=== PATIENT | male | born 1950 | race Caucasian/White ===

== ENCOUNTER 2018-06-27 11:38 | Inpatient (IN) | END 2018-06-28 12:40 | disposition left against medical advice (07) | DRG 378 ==

== ENCOUNTER 2018-08-28 18:21 | Inpatient (IN) | payer MEDICARE ==
[~2018-08-28] VITALS: Ht 170.2 cm; Wt 55.1 kg
[~2018-08-28 18:21] MED LIST: ATOR40TA68 PO; CLOP75TA27 PO; FLUO40CA PO; LEVE10006 PO; TRAZ-111 PO
[2018-08-28] MEDS ORDERED: CEFEPIME 2GM/50 ML (PMX) 50 ML IVPB STA (18:22)
[2018-08-28] MEDS ORDERED: SOD CHLORIDE 0.9% 2,250 ML IV ONE (18:30)
[2018-08-28] MEDS ORDERED: VANCOMYCIN 1 GM (PMX) 250 ML IVPB ONE (18:30)
[2018-08-28] MEDS ORDERED: SOD CHLORIDE 0.9% 0 ML IV ONE (18:59)
--- NOTE | 2018-08-28 19:05 | ERD ---
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 EMS initially reported possible last known well time 1 hour prior to arrival but it appears based on conversation with alf facility at this is likely much longer. It appears the patient was with a borderline blood pressure and he was given 250 cc of saline and started to perk up and was a little bit more conversive. The patient has an chronic encephalopathy and cannot provide further history. Remainder of HPI is very limited. Patient arrives with very limited documentation. No advanced directives with the patient. ROS altered Medications Home Meds Reported Medications Guaifenesin/Codeine Phos (Guaifenesin-Codeine Syrup) 118 Ml Syrup, 5 ML PO Q6H PRN for NEEDED 08/28/18 Oxycodone Hcl* (IR) (Oxycodone Hcl*) 15 Mg Tablet, 15 MG PO Q6H PRN for PAIN, TAB 08/28/18 Docusate Sodium* (Colace*) 100 Mg Capsule, 100 MG PO QHS, #30 CAP 08/28/18 Carvedilol* (Carvedilol*) 3.125 Mg Tablet, 3.125 MG PO BID, #60 TAB 08/28/18 Clonazepam* (Clonazepam*) 1 Mg Tablet, 1 MG PO NEEDED PRN for ANXIETY, TAB 08/28/18 Gabapentin* (Gabapentin*) 400 Mg Capsule, 400 MG PO Q8H, #90 CAP 08/28/18 Ivabradine HCl (Corlanor) 5 Mg Tablet, 2.5 MG PO BID, #60 TAB 08/28/18 Clopidogrel Bisulfate* (Clopidogrel Bisulfate*) 75 Mg Tablet, 75 MG PO DAILY, #30 TAB 08/28/18 Atorvastatin Calcium* (Atorvastatin Calcium*) 20 Mg Tablet, 20 MG PO QHS, #30 TAB 08/28/18 Aspirin* (Aspirin* EC) 81 Mg Tablet.dr, 81 MG PO DAILY, TAB 08/28/18 Quetiapine Fumarate* (Quetiapine Fumarate*) 50 Mg Tablet, 50 MG PO Q8H, TAB 08/28/18 Levetiracetam* (Levetiracetam*) 1,000 Mg Tablet, 1000 MG PO BID, TAB 08/28/18 Trazodone Hcl* (Trazodone Hcl*) 100 Mg Tablet, 100 MG PO QHS, #30 TAB 08/28/18 Spironolactone* (Aldactone*) 25 Mg Tablet, 12.5 MG PO DAILY, #30 TAB 08/28/18 Mirtazapine* (Mirtazapine*) 15 Mg Tablet, 15 MG PO HS, TAB 08/28/18 Lisinopril* (Lisinopril*) 2.5 Mg Tablet, 2.5 MG PO DAILY, #30 TAB HOLD IF SBP<90 08/28/18 Fluoxetine Hcl* (Fluoxetine Hcl*) 40 Mg Capsule, 80 MG PO DAILY, CAP 08/28/18 Discontinued Reported Medications Levetiracetam* (Levetiracetam*) 1,000 Mg Tablet, 1000 MG PO BID, TAB 06/27/18 Fluoxetine Hcl* (Fluoxetine Hcl*) 40 Mg Capsule, 40 MG PO DAILY, CAP 06/27/18 Clopidogrel Bisulfate (Clopidogrel) 75 Mg Tablet, 75 MG PO DAILY, TAB 05/25/14 Trazodone Hcl* (Trazodone Hcl*) 50 Mg Tablet, 50 MG PO HS, TAB 05/25/14 Atorvastatin* (Atorvastatin*) 40 Mg Tablet, 40 MG PO HS, TAB 05/25/14 Allergies Allergies: Coded Allergies: No Known Allergy (Unverified , 08/28/18) PMhx/Soc History of Surgery: Yes (cardiomyopathy, ) Anesthesia Reaction: No (denies) Hx Neurological Disorder: Yes (SEIZURES) Hx Respiratory Disorders: No Hx Cardiac Disorders: Yes (cardiomyopathy) Hx Psychiatric Problems: Yes (anxiety, depression) Hx Miscellaneous Medical Probl: Yes (HTN, seizures, chronic lower back pain ) Hx Alcohol Use: No Hx Substance Use: No Hx Tobacco Use: No FmHx Family History: No diabetes Physical Exam Vitals Vital Signs Date Temp Pulse Resp B/P (MAP) Pulse Ox O2 O2 Flow FiO2 Time Delivery Rate 08/28/18 98.9 73 15 102/62 100 Nasal 2.0 23:00 (75) Cannula 08/28/18 98.9 74 17 104/63 100 Nasal 2.0 22:50 (77) Cannula 08/28/18 98.5 76 17 89/59 (69) 100 Nasal 4.0 22:15 Cannula 08/28/18 98.8 71 18 77/45 (56) 100 Nasal 4.0 22:00 Cannula 08/28/18 99.0 76 19 64/39 (47) 97 Nasal 4.0 21:27 Cannula 08/28/18 98.3 80 19 115/69 100 Non 15.0 19:58 (84) Rebreather 08/28/18 98.3 101 15 106/60 100 Non 15.0 19:30 (75) Rebreather 08/28/18 98.3 108 15 99/56 (70) 100 Non 15.0 19:15 Rebreather 08/28/18 98.3 110 12 88/54 (65) 100 Non 15.0 19:00 Rebreather 08/28/18 Non 15 18:36 Rebreather 08/28/18 98.3 96 12 91/51 (64) 98 18:24 Physical Exam General: Pale cachectic elderly gentleman with slight tachypnea Head: Normocephalic, atraumatic. Eyes: Pupils equally reactive, EOM intact ENT: Very dry mucous membranes Neck: Supple, no lymphadenopathy Respiratory: Lungs clear bilaterally, no distress Cardiovascular: RRR, no murmurs, rubs, or gallops Abdominal: Soft, non-tender, non-distended, no peritoneal signs : No melena MSK: No edema, no unilateral swelling, generalized weakness Neurologic: Limited exam, moving all extremities Skin: No petechia or purpura Psych: Normal mood Result Diagram: 08/28/18 1836 08/28/18 1836 Results 24 hrs Laboratory Tests Test 08/28/18 18:36 08/28/18 19:06 08/28/18 19:12 White Blood Count 15.3 10^3/ul Red Blood Count 1.31 10^6/ul Hemoglobin 2.9 g/dl Hematocrit 10.0 % Mean Corpuscular Volume 76.3 fl Mean Corpuscular Hemoglobin 22.1 pg Mean Corpuscular 29.0 g/dl Hemoglobin Concent Red Cell Distribution Width 16.3 % Platelet Count 376 10^3/UL Mean Platelet Volume 10.1 fl Immature Granulocytes % % Neutrophils % % Segmented Neutrophils % (Manual) 83 % Lymphocytes % % Lymphocytes % (Manual) 12 % Monocytes % % Monocytes % (Manual) 4 % Eosinophils % % Eosinophils % (Manual) 1 % Basophils % % Nucleated Red Blood Cells % 2 % Immature Granulocytes # 10^3/ul Neutrophils # 10^3/ul Lymphocytes (Manual) 1.8 10^3/ul Lymphocytes # 10^3/ul Monocytes # 10^3/ul Monocytes # (Manual) 0.6 10^3/ul Eosinophils # 10^3/ul Basophils # 10^3/ul Nucleated Red Blood Cells # 10^3/ul Pathologist Review (Hematology) YES Platelet Estimate NORMAL Polychromasia 1+ Hypochromasia 3+ Poikilocytosis 1+ Anisocytosis 2+ Microcytosis 2+ Prothrombin Time 14.8 Sec Prothrombin Time Ratio 1.2 INR International Normalized Ratio 1.15 Activated Partial Thromboplast 27.9 Sec Time Sodium Level 133 mmol/L Potassium Level 4.0 mmol/L Chloride Level 104 mmol/L Carbon Dioxide Level 24 mmol/L Anion Gap 5 Blood Urea Nitrogen 33 mg/dl Creatinine 1.19 mg/dl Est Glomerular Filtrat Rate mL/min > 60 mL/min Glucose Level 137 mg/dl Calcium Level 7.8 mg/dl Ferritin 5.5 ng/ml Total Bilirubin 0.0 mg/dl Direct Bilirubin 0.00 mg/dl Indirect Bilirubin 0.0 mg/dl Aspartate Amino Transf (AST/SGOT) 21 IU/L Alanine 22 IU/L Aminotransferase (ALT/SGPT) Alkaline Phosphatase 58 IU/L Troponin I 0.022 ng/ml Total Protein 5.1 g/dl Albumin 2.5 g/dl Globulin 2.60 g/dl Albumin/Globulin Ratio 0.96 Thyroid Stimulating Hormone (TSH) 0.325 MIU/L Free Thyroxine Index 1.75 ug/ml Thyroxine (T4) 3.5 ug/dl Triiodothyronine (T3) Uptake 50.1 % Salicylates Level < 1.0 mg/dl Acetaminophen Level < 10.0 ug/ml Ethyl Alcohol Level < 10.0 mg/dl Urine Color YELLOW Urine Clarity CLEAR Urine pH 6.0 Urine Specific [place] 1.016 Urine Ketones NEGATIVE mg/dL Urine Nitrite NEGATIVE mg/dL Urine Bilirubin NEGATIVE mg/dL Urine Urobilinogen NEGATIVE mg/dL Urine Leukocyte Esterase NEGATIVE [place]/ul Urine Hemoglobin NEGATIVE mg/dL Urine Glucose NEGATIVE mg/dL Urine Total Protein NEGATIVE mg/dl Urine Opiates Screen Positive Urine Barbiturates Negative Urine Amphetamines Screen Negative Urine Benzodiazepines Screen Negative Urine Cocaine Screen Negative Urine Cannabinoids Positive POC Venous Lactate 2.6 mmol/L Current Medications Medications Dose Sig/[place] Start Time Status Last (Trade) Ordered Route PRN Stop Time Admin Dose Reason Admin Sodium 2,250 ml @ BOLUS X1 08/28/18 DC 08/28/18 Chloride 1,125 mls/hr ONCE IV 18:30 08/28/18 19:09 20:29 Cefepime HCl 50 ml @ ONCE STAT 08/28/18 DC 08/28/18 100 mls/hr IVPB 18:22 08/28/18 19:09 18:51 Vancomycin 250 ml @ ONCE ONCE 08/28/18 DC 08/28/18 HCl 125 mls/hr IVPB 18:30 08/28/18 18:30 20:29 Sodium 0 ml @ 0 Q0M ONCE 08/28/18 DC 08/28/18 Chloride mls/hr IV 18:59 08/28/18 18:59 19:07 Pantoprazole 100 ml @ ONCE STAT 08/28/18 DC 08/28/18 80 mg/Sodium 400 mls/hr IVPB 19:21 08/28/18 20:19 Chloride 19:35 Pantoprazole 100 ml @ ONCE STAT 08/28/18 08/28/18 80 mg/Sodium 10 mls/hr IV 19:21 20:18 Chloride 08/29/18 05:20 Furosemide 20 mg ONCE ONCE 08/28/18 DC (Lasix) IV 20:30 08/28/18 20:47 Ondansetron 4 mg Q6H PRN 08/28/18 HCl (Zofran IV NAUSEA 20:30 Inj) AND/OR VOMITING Albuterol 2.5 mg Q2H RESP 08/28/18 (Proventil THERAPY PRN 20:30 0.083% (Neb)) NEB SHORTNESS OF BREATH Ipratropium 0.5 mg Q2H RESP 08/28/18 [place] THERAPY PRN 20:30 (Atrovent NEB 0.02% SHORTNESS OF (Neb)) BREATH 650 mg Q6H PRN 08/28/18 Acetaminophen PO PAIN 20:30 (Tylenol LEVEL 1-3 OR Liquid) FEVER Pantoprazole 100 ml @ Q10H IV 08/28/18 08/28/18 80 mg/Sodium 10 mls/hr 20:30 21:06 Chloride 100 ml @ Q12 IVPB 1/9/19 Levetiracetam 400 mls/hr 21:00 Procedures/MDM EKG, MONITORS, & DIAGNOSTIC IMAGING: EKG: I reviewed and interpreted a 12-lead EKG. Rhythm: Normal sinus rhythm ST Changes: No contiguous ST segment elevations T waves: No contiguous T wave inversions Impression: [No evidence of acute cardiac ischemia] Chest x-ray: IMPRESSION: 1. Hyperinflated lungs with emphysematous changes and findings compatible with fibrosis at the lung bases. No superimposed focal consolidation, pleural effusion, or pneumothorax. 2. Atherosclerotic calcifications of the aortic arch and right greater than left carotid arteries. Consider follow-up carotid ultrasound as clinically warranted. RPTAT: CT brain: IMPRESSION: 1. No acute intracranial hemorrhage, midline shift, mass effect, extra-axial collection, or evidence of large vascular territory acute transcortical infarct. If there is clinical concern for acute ischemia, MRI brain with diffusion weighted imaging may provide a more sensitive and specific evaluation. 2. Mild diffuse cerebral and cerebellar volume loss. 3. Evidence of moderate chronic microangiopathic cerebral white matter change. 4. 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 5. Intracranial calcific atherosclerotic disease. Further findings described above. RPTAT: [facility] CT abdomen and pelvis: IMPRESSION: 1. No bowel obstruction or ileus. Moderate retained stool throughout the colon compatible with constipation. 2. Small hiatal hernia. 3. Appendix not identified. 4. No evidence for diverticulitis. 5. No obstructive uropathy. Previously demonstrated possible nodule within the urinary bladder is not identified. 6. Redemonstrated severe emphysematous changes and peripheral scarring / fibrosis a at the lung bases. 7. Degenerative changes of the lumbar spine. 8. Proximal right femoral intramedullary elvis. 9. Atherosclerotic vascular calcifications. RPTAT: [facility] PROCEDURE: Central Line Note: Consent: [I had a discussion with the patient and family regarding the procedure and discussed risks, benefits, alternatives. They have given verbal informed c onsent and a document was signed and placed in the chart.] Indication: Critically ill patient requiring specialized vascular access for fluid or pressor management Location: Right IJ Indication: Hypotension Procedure: Sterile procedure was observed throughout insertion of the central line. The insertion site was prepped with sterile solution. Ultrasound-guided identification of the vein was performed. Insertion of a needle into the vein was obtained with return of dark, nonpulsatile blood. The wire was then threaded through the needle without complication. The wire was then identified within the vein using ultrasound. A small skin incision was made, the needle was removed intact, dilation of the vein was performed and insertion of a triple lumen catheter was completed. The catheter was then sutured to the skin. All 3 ports jarett back and flushed without difficulty. A sterile dressing was applied. The patient tolerated the procedure well there were no complications. Emergency Bedside Ultrasound: [The patient was verbally consented prior to procedure and understands the risk s, benefits, and alternatives. The patient is agreeable to procedure and has given verbal consent.] Indication: Central line Probe Type: Linear Findings: Dynamic ultrasound utilizing compressive technique with both linear and horizontal views, additional images showing wire within the venous system were obtained. The images were saved along with patient information on a paper chart to be scanned into EMR. The patient tolerated the procedure well and there were no complications. A post-line chest x-ray was ordered as indicated. LAB INTERPRETATION: * CBC shows evidence of leukocytosis of 15.3 with hemoglobin of 2.9 * Hyponatremia of 133, normal creatinine, elevated lactic acid of 2.6, negative troponin MEDICAL DECISION MAKING: The patient presents with altered mental status, borderline low blood pressure and clinical signs of severe anemia. No evidence of active GI hemorrhage. The patient appears to be full code but very limited documentation is available. The patient requires aggressive resuscitation efforts. Likely blood transfusion. Currently the patient is protecting his airway. He does have slight oxygen requirement. I believe IV fluids and empiric antibiotics would be reasonable given likelihood of infection. ER COURSE: * The patient is protecting his airway and does not require intubation at this time. * Hemoglobin came back at 2.9. This is consistent with critical anemia. Given the patient's oxygen requirement, low blood pressure I believe 2 units of uncrossed matched packed blood blood cells are indicated. * There is no family available for transfusion consent. The benefits outweigh the risks. A document has been signed and placed in the chart. * I initially ordered a 30 cc/kg bolus of saline. However given the patient's critically low hemoglobin I am concerned that more saline will obliterate the patient's ability to carry oxygen. I will hold on fluids at this time and packed red blood cells will be initiated. * Continue to monitor the blood pressure. The patient may require central line. * Unclear etiology of the patient's blood loss. CT imaging is being obtained to rule out acute process. This is possibly a subacute process given no evidence of acute active GI bleed at this time. * The patient has persistence of labile blood pressure. Despite blood transfusion the patient's blood pressure remains in the 80s. A triple lumen catheter was placed for this reason. The patient still appears to be dry. Again, I am concerned about aggressive saline resuscitation because the patient may washout hemoglobin and packed red blood cells. Blood cells are preferable in this case. * The patient will be admitted to the ICU. The patient has a triple lumen catheter but blood pressure is in the 100s at this time. No indication for levo initiation. * The patient has had a visit with possible GI bleed but left AMA. PPI bolus and drip was initiate * No obvious source of infection. This is likely secondary subacute GI bleed. Empiric antibiotics provided CONSULTATION: [None] DISPOSITION PLAN: Intensive care unit Accepting care team and consultations: I discussed the current laboratory data, diagnostic imaging and emergency care provided. Admitting team: Dr. Salter Admitting team indication: Insurance directed Critical Care Note: Total time: 50 minutes Indication/Organ System Threat: Severe anemia I spent the above amount of critical care time with the patient, not including billable procedures. This included chart review, consultations, repeat bedside evaluations, and titration of appropriate medications to prevent cardiopulmonary or respiratory collapse. Departure Diagnosis: Primary Impression: Altered level of consciousness Additional Impressions: Severe anemia Upper GI bleed Hypotension Hypotension type: unspecified hypotension type Qualified Codes: I95.9 - Hypotension, unspecified Lactic acidosis Condition: Critical STARLA WILDE MD Aug 28, 2018 19:05
[2018-08-28] MEDS ORDERED: FLUO40CA PO (19:19)
[2018-08-28] MEDS ORDERED: LISI2.5T59 PO (19:20)
[2018-08-28] MEDS ORDERED: SPIR25TA PO (19:21)
[2018-08-28] MEDS ORDERED: MIRT15TA5 PO (19:21)
[2018-08-28] MEDS ORDERED: PANTOPRAZOLE IV 80 MG in SOD CHLORIDE 0.9% 100 ML IVPB STA (19:21)
[2018-08-28] MEDS ORDERED: PANTOPRAZOLE IV 80 MG in SOD CHLORIDE 0.9% 100 ML IV STA (19:21)
[2018-08-28] MEDS ORDERED: QUET50TA22 PO (19:22)
[2018-08-28] MEDS ORDERED: TRA100 PO (19:22)
[2018-08-28] MEDS ORDERED: LEVE10006 PO (19:22)
[2018-08-28] MEDS ORDERED: CLOP75TA19 PO (19:23)
[2018-08-28] MEDS ORDERED: ASPI-817 PO (19:23)
[2018-08-28] MEDS ORDERED: ATOR20TA38 PO (19:23)
[2018-08-28] MEDS ORDERED: IVAB5TAB PO (19:24)
[2018-08-28] MEDS ORDERED: GABA400C14 PO (19:24)
[2018-08-28] MEDS ORDERED: CLON1TAB13 PO (19:25)
[2018-08-28] MEDS ORDERED: DOCU-144 PO (19:26)
[2018-08-28] MEDS ORDERED: CARV3.1260 PO (19:26)
[2018-08-28] MEDS ORDERED: OXYC15TA PO (19:27)
[2018-08-28] MEDS ORDERED: GUAI118L14 PO (19:28)
--- NOTE | 2018-08-28 20:24 | HP ---
Date/Time of Note Date/Time of Note DATE: 08/28/18 TIME: 20:24 Assessment/Plan VTE Prophylaxis SCD applied (from Nsg): Yes Pharmacological prophylaxis: NA/contraindicated Pharm contraindication: bleeding Lines/Catheters IV Catheter Type (from Nrsg): Saline Lock Assessment/Plan Hospital Course A 68-year-old male being admitted to the ICU floor for: #1 severe microcytic anemia: Likely secondary to bleed possibly from underlying malignancy. Patient was found to have a hemoglobin of 2.9 on admission. 4 units of packed red blood cells have been ordered. Goal will be to maintain hemoglobin greater than 7.5. Protonix drip. Will consult GI. Patient does report that he has had difficulty swallowing so there is concern for possible cancer possible esophageal in origin. Will check iron stores. #2 history of hematemesis: Patient does report episodes of noticing blood in his vomit. Denies any recent episodes. His oropharynx at the current time is nonbloody. Again we will continue blood transfusion. Protonix drip. CBC every 6 hours. Will consult GI. #3 lactic acidosis: Likely secondary to hypoperfusion given patient's severe anemia. Trend lactic acid levels. Patient did receive antibiotics in the ED however at the current time I do not suspect an infection. I will hold off on any further antibiotics. #4 hypotension: Likely secondary to volume depletion from severe anemia. Continue blood transfusions as indicated, may need a central line access for possible pressors. #5 coronary artery disease: Continue statin the current time, will hold Plavix and beta-jorge given patient's bleeding hypotension. Will obtain echocardiogram to assess cardiac function. #6 seizure disorder: Keppra IV at the current time #7 chronic pain syndrome: PRN pain meds as indicated. #8 Depression: PRN clonazepam, will resume further medications as indicated. #9 DVT GI prophylaxis: SCDs, Protonix IV Greater than 45 minutes critical care time spent on the care management this patient. Further treatment strategy will be implemented for clinical course Result Diagram: 08/28/186 08/28/18 1836 Results 24hrs Laboratory Tests Test 08/28/18 18:36 08/28/18 19:06 08/28/18 19:12 White Blood Count 15.3 #H Red Blood Count 1.31 #L Hemoglobin 2.9 #*L Hematocrit 10.0 #L Mean Corpuscular Volume 76.3 L Mean Corpuscular Hemoglobin 22.1 L Mean Corpuscular Hemoglobin Concent 29.0 L Red Cell Distribution Width 16.3 H Platelet Count 376 # Mean Platelet Volume 10.1 Immature Granulocytes % Neutrophils % Segmented Neutrophils % (Manual) 83 H Lymphocytes % Lymphocytes % (Manual) 12 L Monocytes % Monocytes % (Manual) 4 Eosinophils % Eosinophils % (Manual) 1 Basophils % Nucleated Red Blood Cells % 2 H Immature Granulocytes # Neutrophils # Lymphocytes (Manual) 1.8 Lymphocytes # Monocytes # Monocytes # (Manual) 0.6 Eosinophils # Basophils # Nucleated Red Blood Cells # Pathologist Review (Hematology) YES Platelet Estimate NORMAL Polychromasia 1+ Hypochromasia 3+ Poikilocytosis 1+ Anisocytosis 2+ Microcytosis 2+ Prothrombin Time 14.8 Prothrombin Time Ratio 1.2 INR International Normalized Ratio 1.15 Activated Partial Thromboplast Time 27.9 Sodium Level 133 L Potassium Level 4.0 Chloride Level 104 Carbon Dioxide Level 24 Anion Gap 5 Blood Urea Nitrogen 33 H Creatinine 1.19 Est Glomerular Filtrat Rate mL/min > 60 Glucose Level 137 Calcium Level 7.8 L Total Bilirubin 0.0 L Direct Bilirubin 0.00 Indirect Bilirubin 0.0 Aspartate Amino Transf (AST/SGOT) 21 Alanine Aminotransferase (ALT/SGPT) 22 Alkaline Phosphatase 58 Troponin I 0.022 Total Protein 5.1 L Albumin 2.5 L Globulin 2.60 Albumin/Globulin Ratio 0.96 Free Thyroxine Index 1.75 Thyroxine (T4) 3.5 L Triiodothyronine (T3) Uptake 50.1 H Salicylates Level < 1.0 L Acetaminophen Level < 10.0 L Ethyl Alcohol Level < 10.0 H Urine Color YELLOW Urine Clarity CLEAR Urine pH 6.0 Urine Specific [place] 1.016 Urine Ketones NEGATIVE Urine Nitrite NEGATIVE Urine Bilirubin NEGATIVE Urine Urobilinogen NEGATIVE Urine Leukocyte Esterase NEGATIVE Urine Hemoglobin NEGATIVE Urine Glucose NEGATIVE Urine Total Protein NEGATIVE Urine Opiates Screen Positive Urine Barbiturates Negative Urine Amphetamines Screen Negative Urine Benzodiazepines Screen Negative Urine Cocaine Screen Negative Urine Cannabinoids Positive POC Venous Lactate 2.6 *H HPI/ROS Admit Date/Time Admit Date/Time Hx of Present Illness Chief complaint: Brought in [place] [facility] secondary to altered mental status The following history was obtained from the ED physician documentation as well as from the patient however patient was not able to give a clear medical history given his clinical condition and history of encephalopathy. This is a 8-year-old male who was brought in from a [place] [facility] facility as patient was noted to be altered. It is unclear how long the patient was noted to be altered. When he arrived to the emergency department patient was noted to have a borderline blood pressure and was given a 250 cc bolus of normal saline which did result in him being slightly more conversive. Patient was noted to have a severe anemia with hemoglobin of 2.6. Patient was ordered a blood transfusion and shortly after patient did appear to improve his mentation and become more active. Upon my examination of the patient at the bedside patient reports that he has had 3 days approximately of decreased appetite and when questioned further he does report that he has noticed difficulty swallowing solids. He does report that he has been drinking fluids. He has reported that he has noticed some vomiting of dark blood on occasion but denies any bloody stools. He does have a former history of drinking and occasionally he still smokes marijuana. Upon chart review it does appear that the patient was admitted in June 2018 for a possible GI bleed but he ended up leaving [facility] without any official workup. Allergies: NKDA Medications: See MAR DARA Const: As per HPI Eyes : No pain discharge or redness or change in visual acuity ENT: No pain, sore throat, congestion, congestion, dysphagia or discharge Respiratory: No shortness of breath, cough, sputum, wheezing, or pleuritic pain Cardiovascular: No chest pain, palpitation, PND, or edema GI : As per HPI Genitourinary: No dysuria, hematuria, flank pain , discharge or CVA tenderness Musculoskeletal: No joint pain, back pain, neck pain, restricted range of motion in neck or joints Skin: No rash, bruising or hives Neuro: No headache, dizziness, syncope, seizure, focal weakness Endocrine: No polyuria, polydipsia, temperature intolerance Psych: No hallucination, depression, anxiety or suicidal ideation PMH/Family/Social Past Medical History depression, seizure disorders, dyslipidemia, borderline hypertension, degenerative joint disease of spine, chronic pain syndrome, Medications Current Medications Sodium Chloride 2,250 ml @ 1,125 mls/hr BOLUS X1 ONCE IV Last administered on 08/28/18at 19:09; Admin Dose 1,125 MLS/HR; Start 08/28/18 at 18:30; Stop 08/28/18 at 20:29 Vancomycin HCl 250 ml @ 125 mls/hr ONCE ONCE IVPB Last administered on 08/28/18at 18:30; Admin Dose 125 MLS/HR; Start 08/28/18 at 18:30; Stop 08/28/18 at 20:29 Pantoprazole 80 mg/Sodium Chloride 100 ml @ 10 mls/hr ONCE STAT IV Last admi nistered on 08/28/18at 20:18; Admin Dose 10 MLS/HR; Start 08/28/18 at 19:21; Stop 08/29/18 at 05:20 Furosemide (Lasix) 20 mg ONCE ONCE IV ; Start 08/28/18 at 20:30; Stop 08/28/18 at 20:31; Status UNV Ondansetron HCl (Zofran Inj) 4 mg Q6H PRN IV NAUSEA AND/OR VOMITING; Start 08/28/18 at 20:30; Status UNV Albuterol (Proventil 0.083% (Neb)) 2.5 mg Q2H RESP THERAPY PRN NEB SHORTNESS OF BREATH; Start 08/28/18 at 20:30; Status UNV Ipratropium [place] (Atrovent 0.02% (Neb)) 0.5 mg Q2H RESP THERAPY PRN NEB SHORTNESS OF BREATH; Start 08/28/18 at 20:30; Status UNV Acetaminophen (Tylenol Liquid) 650 mg Q6H PRN PO PAIN LEVEL 1-3 OR FEVER; Start 08/28/18 at 20:30; Status UNV Pantoprazole 80 mg/Sodium Chloride 100 ml @ 10 mls/hr Q10H IV ; Start 08/28/18 at 20:30; Status UNV Coded Allergies: No Known Allergy (Unverified , 08/28/18) Past Surgical History Patient unable to recall Family History Significant Family History: cancer (Mom) Social History Former drinker Smoking Status: Former smoker Drug Use: marijuana Exam/Review of Systems Vital Signs Vitals Vital Signs Date Temp Pulse Resp B/P (MAP) Pulse Ox O2 O2 Flow FiO2 Time Delivery Rate 08/28/18 98.3 80 19 115/69 100 Non 15.0 19:58 (84) Rebreather Exam Exam General: Awake but lethargic, pale appearing skin HEENT: Atraumatic, normocephalic. The pupils are equal, round and reactive. Extraocular motor are intact Neck: Supple with full range of motion. No rigidity or meningismus Chest: Nontender Lungs: Clear to auscultation bilaterally no crackles rales or wheezing Heart: Sinus tachycardia Abdomen: Soft , nontender, nondistended , bowel sounds are present. No guarding no rebound tenderness , No masses or organomegaly. No costovertebral temporal angle mass Extremities: Normal to inspection, no edema no cyanosis Neurologic: Normal mental status, speech normal, cranial nerves II through XII are intact, motor and sensory are intact, gait not assessed secondary to weakness Skin: Pale appearing Additional Comments PROCEDURE: XR Chest. CLINICAL INDICATION: Altered Mental Status TECHNIQUE: Single view chest x-ray. COMPARISON: [facility] DX CHEST 09/22/2017; FINDINGS: The cardiomediastinal silhouette is normal in size and contour, accounting for hyperinflated lungs. Faint atherosclerotic calcifications of the aortic arch are present. Apparent right greater than left carotid calcifications. The lungs appear hyperinflated with flattening of the diaphragms, suggestive of COPD. Emphysematous changes are noted. Bibasilar reticular opacities are compatible with fibrosis. No pleural effusion, focal consolidation, or pneumothorax. Mild multilevel degenerative changes of the visualized spine.. IMPRESSION: 1. Hyperinflated lungs with emphysematous changes and findings compatible with fibrosis at the lung bases. No superimposed focal consolidation, pleural effusion, or pneumothorax. 2. Atherosclerotic calcifications of the aortic arch and right greater than left carotid arteries. Consider follow-up carotid ultrasound as clinically warranted. RPTAT: PP Physician Margy Date Time Electronically viewed and signed by Physician Margy on 08/28/2018 19:08 RP/ CC: STARLA WILDE MD [id number] OMI GARVEY Aug 28, 2018 20:24
[2018-08-28] MEDS ORDERED: ACETAMINOPHEN 650MG/20.3ML CUP PO PRN (20:30)
[2018-08-28] MEDS ORDERED: ALBUTEROL 0.083% (NEB) 2.5 MG/3 ML AMP NEB PRN (20:30)
[2018-08-28] MEDS ORDERED: FUROSEMIDE 20 MG INJ IV ONE (20:30)
[2018-08-28] MEDS ORDERED: IPRATROPIUM (NEB) 0.5 MG/2.5 ML AMP NEB PRN (20:30)
[2018-08-28] MEDS ORDERED: ONDANSETRON 4 MG INJ IV PRN (20:30)
[2018-08-28] MEDS: LEVETIRACETAM 1000 MG (PMX) 100 ML IVPB SCH (21:00)
[2018-08-28] MEDS: PANTOPRAZOLE IV 80 MG in SOD CHLORIDE 0.9% 100 ML IV SCH (21:06)
[2018-08-29] VITALS (36 sets, daily range): BP systolic 77–132; BP diastolic 46–77; PULSE 62–85; RESP 14–22; Ht 170.2 cm; Wt 55.1 kg
[2018-08-29] MEDS ORDERED: NORepinephrine 8MG/250 ML (PMX 250 ML IV SCH ×2
[2018-08-29] MEDS: PANTOPRAZOLE IV 80 MG in SOD CHLORIDE 0.9% 100 ML IV SCH ×2 (06:12→12:56)
[2018-08-29] MEDS: NITROGLYCERIN (SL) 0.4 MG TAB SL PRN ×2 (08:01→08:21)
[2018-08-29] MEDS ORDERED: FUROSEMIDE 20 MG INJ IV ONE (08:30)
[2018-08-29] MEDS: clonAZEPAM 0.5 MG TAB PO PRN ×2 (09:07→11:51)
[2018-08-29] MEDS: LEVETIRACETAM 1000 MG (PMX) 100 ML IVPB SCH ×2 (11:46→21:00)
--- NOTE | 2018-08-29 16:52 | CONS ---
Date/Time of Note Date/Time of Note DATE: 08/29/18 TIME: 16:37 Assessment/Plan Assessment/Plan Hospital Course Assessment: Severe microcytic anemia Hematemesis-resolved Hypertension Coronary artery disease Seizure disorder- on Keppra Chronic pain syndrome Plan: Clear Liquid diet NPO after in am EGD/colonoscopy tomorrow afternoon Monitor labs , transfuse for Hgb less than 7.5 Patient seen in collaboration with Dr. Schuler Result Diagram: 08/29/18 0924 08/29/18 0558 Results 24hrs Laboratory Tests Test 08/28/18 18:36 08/28/18 19:06 08/28/18 19:12 08/29/18 00:44 White Blood Count 15.3 #H 14.0 H Red Blood Count 1.31 #L 2.88 #L Hemoglobin 2.9 #*L 7.8 #L Hematocrit 10.0 #L 23.9 #L Mean Corpuscular 76.3 L 83.0 Volume Mean Corpuscular 22.1 L 27.1 #L Hemoglobin Mean Corpuscular 29.0 L 32.6 Hemoglobin Concen t Red Cell 16.3 H 15.2 H Distribution Width Platelet Count 376 # 275 # Mean Platelet 10.1 9.0 Volume Immature 0.700 H Granulocytes % Neutrophils % 81.0 H Segmented 83 H Neutrophils % (Manual) Lymphocytes % 8.1 L Lymphocytes % 12 L (Manual) Monocytes % 9.1 Monocytes % 4 (Manual) Eosinophils % 0.9 Eosinophils % 1 (Manual) Basophils % 0.2 Nucleated Red 2 H 0.0 Blood Cells % Immature 0.100 H Granulocytes # Neutrophils # 11.3 H Lymphocytes 1.8 (Manual) Lymphocytes # 1.1 Monocytes # 1.3 H Monocytes # 0.6 (Manual) Eosinophils # 0.1 Basophils # 0.0 Nucleated Red 0.0 Blood Cells # Pathologist Review (Hematolog y) Platelet Estimate NORMAL Polychromasia 1+ Hypochromasia 3+ Poikilocytosis 1+ Anisocytosis 2+ Microcytosis 2+ Prothrombin Time 14.8 Prothrombin Time 1.2 Ratio INR International 1.15 Normalized Ratio Activated 27.9 Partial Thrombopl ast Time Sodium Level 133 L Potassium Level 4.0 Chloride Level 104 Carbon Dioxide 24 Level Anion Gap 5 Blood Urea 33 H Nitrogen Creatinine 1.19 Est Glomerular > 60 Filtrat Rate mL/min Glucose Level 137 Calcium Level 7.8 L Ferritin 5.5 L Total Bilirubin 0.0 L Direct Bilirubin 0.00 Indirect 0.0 Bilirubin Aspartate Amino 21 Transf (AST/SGOT) Alanine 22 Aminotransferase (ALT/SGPT) Alkaline 58 Phosphatase Troponin I 0.022 Total Protein 5.1 L Albumin 2.5 L Globulin 2.60 Albumin/Globulin 0.96 Ratio Thyroid 0.325 L Stimulating Hormone (TSH) Free Thyroxine 1.75 Index Thyroxine (T4) 3.5 L Triiodothyronine 50.1 H (T3) Uptake Salicylates Level < 1.0 L Acetaminophen < 10.0 L Level Ethyl Alcohol < 10.0 H Level Urine Color YELLOW Urine Clarity CLEAR Urine pH 6.0 Urine Specific 1.016 [place] Urine Ketones NEGATIVE Urine Nitrite NEGATIVE Urine Bilirubin NEGATIVE Urine NEGATIVE Urobilinogen Urine Leukocyte NEGATIVE Esterase Urine Hemoglobin NEGATIVE Urine Glucose NEGATIVE Urine Total NEGATIVE Protein Urine Opiates Positive Screen Urine Negative Barbiturates Urine Negative Amphetamines Screen Urine Negative Benzodiazepines Screen Urine Cocaine Negative Screen Urine Positive Cannabinoids POC Venous 2.6 *H Lactate Lactic Acid Level 0.8 Test 08/29/18 05:05 08/29/18 05:57 08/29/18 05:58 08/29/18 09:24 Lab Scanned BLOOD TRANSFUSIO Report N Lactic Acid Level 1.3 Iron Level 167 H Total Iron 327 Binding Capacity Percent Iron 51 Saturation Triglycerides 74 Level Cholesterol Level < 50 L LDL Cholesterol, Calculated HDL Cholesterol 20 L Cholesterol/HDL Ratio White Blood Count 14.3 H 13.7 H Red Blood Count 3.34 L 3.41 L Hemoglobin 9.2 L 9.5 L Hematocrit 27.6 L 27.6 L Mean Corpuscular 82.6 80.9 L Volume Mean Corpuscular 27.5 L 27.9 L Hemoglobin Mean Corpuscular 33.3 34.4 Hemoglobin Concen t Red Cell 14.7 H 15.0 H Distribution Width Platelet Count 285 288 Mean Platelet 9.3 9.7 Volume Immature 0.800 H 1.200 H Granulocytes % Neutrophils % 79.1 H 84.2 H Lymphocytes % 8.1 L 4.8 L Monocytes % 8.6 7.5 Eosinophils % 3.1 1.9 Basophils % 0.3 0.4 Nucleated Red 0.1 H 0.1 H Blood Cells % Immature 0.110 H 0.160 H Granulocytes # Neutrophils # 11.3 H 11.5 H Lymphocytes # 1.2 0.7 L Monocytes # 1.2 H 1.0 H Eosinophils # 0.4 0.3 Basophils # 0.0 0.1 Nucleated Red 0.0 0.0 Blood Cells # Sodium Level 139 Potassium Level 4.3 Chloride Level 110 Carbon Dioxide 21 Level Anion Gap 8 Blood Urea 23 H Nitrogen Creatinine 0.92 Est Glomerular > 60 Filtrat Rate mL/min Glucose Level 101 Calcium Level 6.9 L Troponin I 0.035 CC: KERLINE SCHULER MD ; Consultation Date/Type/Reason Admit Date/Time Date of Consultation: Aug 29, 2018 Type of Consult GI Hx of Present Illness This is a 68-year-old male sent in from his residential facility secondary t o altered mental status. Upon evaluation patient noted to have hypotension as well as a hemoglobin of 2.6 he is status post multiple transfusions today hemoglobin is 9.5. Patient states he previously had a history of hematemesis since resolved. He denies constipation, diarrhea, melena, or hematochezia. He states he previously had a colonoscopy unsure when or results believes this is well over a year ago. Currently patient states he has been having progressive painful swallowing he has not previously had an upper endoscopy. History of seizures last seizure was noted to be yesterday per patient currently on Keppra. Given overall clinical picture we will plan for EGD colonoscopy tomorrow reviewed risk/benefits/alternatives patient verbalized understanding is agreeable to procedure Review of Systems: A 12 system, review was conducted and is negative except as noted in the HPI or here. Past Medical History Medications Current Medications Ondansetron HCl (Zofran Inj) 4 mg Q6H PRN IV NAUSEA AND/OR VOMITING; Start 08/28/18 at 20:30 Albuterol (Proventil 0.083% (Neb)) 2.5 mg Q2H RESP THERAPY PRN NEB SHORTNESS OF BREATH; Start 08/28/18 at 20:30 Ipratropium [place] (Atrovent 0.02% (Neb)) 0.5 mg Q2H RESP THERAPY PRN NEB SHORTNESS OF BREATH; Start 08/28/18 at 20:30 Acetaminophen (Tylenol Liquid) 650 mg Q6H PRN PO PAIN LEVEL 1-3 OR FEVER; Start 08/28/18 at 20:30 Pantoprazole 80 mg/Sodium Chloride 100 ml @ 10 mls/hr Q10H IV Last administered on 08/29/18at 12:56; Admin Dose 10 MLS/HR; Start 08/28/18 at 20:30 Levetiracetam 100 ml @ 400 mls/hr Q12 IVPB Last administered on 08/29/18at 11:46; Admin Dose 400 MLS/HR; Start 08/28/18 at 21:00 Nitroglycerin (Nitroglycerin (Sl Tab) 0.4 Mg) 1 tab Q5M PRN SL ANGINA Last administered on 08/29/18at 08:21; Admin Dose 1 TAB; Start 08/29/18 at 07:30 Clonazepam (Klonopin) 1 mg DAILY PRN PO ANXIETY Last administered on 08/29/18at 11:51; Admin Dose 1 MG; Start 08/29/18 at 08:30 Trazodone HCl (Desyrel) 100 mg QHS PO ; Start 08/29/18 at 21:00 Allergies: Coded Allergies: No Known Allergy (Unverified , 08/28/18) Social History Smoking Status: Former smoker Drug Use: marijuana Exam/Review of Systems Vital Signs Vitals Vital Signs Date Temp Pulse Resp B/P (MAP) Pulse Ox O2 O2 Flow FiO2 Time Delivery Rate 08/29/18 72 16:00 08/29/18 98.8 18 132/58 96 15:30 (82) 08/29/18 Room Air 11:00 08/29/18 2.0 00:45 Intake and Output 08/28/18 08/28/18 08/29/18 1515:00 23:00 07:00 IntakeIntake Total 3030 ml 100.000 ml OutputOutput Total 250 ml 610 ml BalanceBalance 2780 ml -510.000 ml Exam PHYSICAL EXAMINATION: GENERAL: Alert & oriented x 3, in no acute distress, slightly forgetful but understands her sedation including discussion of EGD and colonoscopy. SKIN: No lesions EYES: Pupils equal reactive to light, no discharge. EARS/NOSE AND THROAT: Ears normal, nose normal, oropharynx candido NECK: Supple, no masses, thyroid normal CARDIOVASCULAR: Heart: Regular rate and rhythm RESPIRATORY: Lungs clear to auscultation GASTROINTESTINAL AND LIVER: Abdomen: Soft, non tenderness, non-distended, no hernias, no masses, no organomegaly, no ascites, no guarding, no rebound tenderness, normoactive bowel sounds. Rectal: Deferred. EXTREMITIES: No cyanosis, clubbing or edema. Medications Medications Current Medications Ondansetron HCl (Zofran Inj) 4 mg Q6H PRN IV NAUSEA AND/OR VOMITING; Start 08/28/18 at 20:30 Albuterol (Proventil 0.083% (Neb)) 2.5 mg Q2H RESP THERAPY PRN NEB SHORTNESS OF BREATH; Start 08/28/18 at 20:30 Ipratropium [place] (Atrovent 0.02% (Neb)) 0.5 mg Q2H RESP THERAPY PRN NEB SHORTNESS OF BREATH; Start 08/28/18 at 20:30 Acetaminophen (Tylenol Liquid) 650 mg Q6H PRN PO PAIN LEVEL 1-3 OR FEVER; Start 08/28/18 at 20:30 Pantoprazole 80 mg/Sodium Chloride 100 ml @ 10 mls/hr Q10H IV Last ad ministered on 08/29/18at 12:56; Admin Dose 10 MLS/HR; Start 08/28/18 at 20:30 Levetiracetam 100 ml @ 400 mls/hr Q12 IVPB Last administered on 08/29/18at 11:46; Admin Dose 400 MLS/HR; Start 08/28/18 at 21:00 Nitroglycerin (Nitroglycerin (Sl Tab) 0.4 Mg) 1 tab Q5M PRN SL ANGINA Last administered on 08/29/18at 08:21; Admin Dose 1 TAB; Start 08/29/18 at 07:30 Clonazepam (Klonopin) 1 mg DAILY PRN PO ANXIETY Last administered on 08/29/18at 11:51; Admin Dose 1 MG; Start 08/29/18 at 08:30 Trazodone HCl (Desyrel) 100 mg QHS PO ; Start 08/29/18 at 21:00 [place] Aug 29, 2018 16:47
--- NOTE | 2018-08-29 16:57 | PN ---
Date/Time of Note Date/Time of Note DATE: 08/29/18 TIME: 16:49 Assessment/Plan VTE Prophylaxis Risk score (from Ns)>0 risk: 9 SCD applied (from [facility]): Yes Pharmacological prophylaxis: NA/contraindicated Pharm contraindication: bleeding Lines/Catheters IV Catheter Type (from Nrsg): Central Line Central line still needed: Yes Urinary Cath still in place: Yes Reason Cath still needed: urinary retention Assessment/Plan Assessment/Plan A 68-year-old male with #1 severe microcytic anemia, hgb 2.9: improved -s/p 5 units PRBC -?GI bleed, f/u SOBT, GI consult -Protonix drip -iron profile done post transfusion, likely false result, ferritin levels on admission low #2 GI bleed? -continue protinuix GTT, await GI recs #3 lactic acidosis: Likely secondary to hypoperfusion given patient's severe an emia. -lactic acid levels trended down, continue gentle IV hydration #4 hypotension: Likely secondary to volume depletion from severe anemia. -resolved with transfusion #5 Chest pain: -ACS rule out, will also get 2D echo 6. Hx of coronary artery disease and CM -: Continue statin the current time, continue to hold plavix for now, resume BB as bP tolerates #6 seizure disorder: -continue Keppra IV at the current time #7 chronic pain syndrome, ?med seeking behaviour -: PRN pain meds as indicated. #8 Depression: -continue home meds, no suicidal or homicidal thoughts #9 DVT GI prophylaxis: SCDs, Protonix IV Dispo: transfer to [facility], ACS r/o, GI review Care time > 35mins Result Diagram: 08/29/1892308/29/18 0558 Results 24hrs Laboratory Tests Test 08/28/18 18:36 08/28/18 19:06 08/28/18 19:12 08/29/18 00:44 White Blood Count 15.3 #H 14.0 H Red Blood Count 1.31 #L 2.88 #L Hemoglobin 2.9 #*L 7.8 #L Hematocrit 10.0 #L 23.9 #L Mean Corpuscular 76.3 L 83.0 Volume Mean Corpuscular 22.1 L 27.1 #L Hemoglobin Mean Corpuscular 29.0 L 32.6 Hemoglobin Concen t Red Cell 16.3 H 15.2 H Distribution Width Platelet Count 376 # 275 # Mean Platelet 10.1 9.0 Volume Immature 0.700 H Granulocytes % Neutrophils % 81.0 H Segmented 83 H Neutrophils % (Manual) Lymphocytes % 8.1 L Lymphocytes % 12 L (Manual) Monocytes % 9.1 Monocytes % 4 (Manual) Eosinophils % 0.9 Eosinophils % 1 (Manual) Basophils % 0.2 Nucleated Red 2 H 0.0 Blood Cells % Immature 0.100 H Granulocytes # Neutrophils # 11.3 H Lymphocytes 1.8 (Manual) Lymphocytes # 1.1 Monocytes # 1.3 H Monocytes # 0.6 (Manual) Eosinophils # 0.1 Basophils # 0.0 Nucleated Red 0.0 Blood Cells # Pathologist Review (Hematolog y) Platelet Estimate NORMAL Polychromasia 1+ Hypochromasia 3+ Poikilocytosis 1+ Anisocytosis 2+ Microcytosis 2+ Prothrombin Time 14.8 Prothrombin Time 1.2 Ratio INR International 1.15 Normalized Ratio Activated 27.9 Partial Thrombopl ast Time Sodium Level 133 L Potassium Level 4.0 Chloride Level 104 Carbon Dioxide 24 Level Anion Gap 5 Blood Urea 33 H Nitrogen Creatinine 1.19 Est Glomerular > 60 Filtrat Rate mL/min Glucose Level 137 Calcium Level 7.8 L Ferritin 5.5 L Total Bilirubin 0.0 L Direct Bilirubin 0.00 Indirect 0.0 Bilirubin Aspartate Amino 21 Transf (AST/SGOT) Alanine 22 Aminotransferase (ALT/SGPT) Alkaline 58 Phosphatase Troponin I 0.022 Total Protein 5.1 L Albumin 2.5 L Globulin 2.60 Albumin/Globulin 0.96 Ratio Thyroid 0.325 L Stimulating Hormone (TSH) Free Thyroxine 1.75 Index Thyroxine (T4) 3.5 L Triiodothyronine 50.1 H (T3) Uptake Salicylates Level < 1.0 L Acetaminophen < 10.0 L Level Ethyl Alcohol < 10.0 H Level Urine Color YELLOW Urine Clarity CLEAR Urine pH 6.0 Urine Specific 1.016 [place] Urine Ketones NEGATIVE Urine Nitrite NEGATIVE Urine Bilirubin NEGATIVE Urine NEGATIVE Urobilinogen Urine Leukocyte NEGATIVE Esterase Urine Hemoglobin NEGATIVE Urine Glucose NEGATIVE Urine Total NEGATIVE Protein Urine Opiates Positive Screen Urine Negative Barbiturates Urine Negative Amphetamines Screen Urine Negative Benzodiazepines Screen Urine Cocaine Negative Screen Urine Positive Cannabinoids POC Venous 2.6 *H Lactate Lactic Acid Level 0.8 Test 08/29/18 05:05 08/29/18 05:57 08/29/18 05:58 08/29/18 09:24 Lab Scanned BLOOD TRANSFUSIO Report N Lactic Acid Level 1.3 Iron Level 167 H Total Iron 327 Binding Capacity Percent Iron 51 Saturation Triglycerides 74 Level Cholesterol Level < 50 L LDL Cholesterol, Calculated HDL Cholesterol 20 L Cholesterol/HDL Ratio White Blood Count 14.3 H 13.7 H Red Blood Count 3.34 L 3.41 L Hemoglobin 9.2 L 9.5 L Hematocrit 27.6 L 27.6 L Mean Corpuscular 82.6 80.9 L Volume Mean Corpuscular 27.5 L 27.9 L Hemoglobin Mean Corpuscular 33.3 34.4 Hemoglobin Concen t Red Cell 14.7 H 15.0 H Distribution Width Platelet Count 285 288 Mean Platelet 9.3 9.7 Volume Immature 0.800 H 1.200 H Granulocytes % Neutrophils % 79.1 H 84.2 H Lymphocytes % 8.1 L 4.8 L Monocytes % 8.6 7.5 Eosinophils % 3.1 1.9 Basophils % 0.3 0.4 Nucleated Red 0.1 H 0.1 H Blood Cells % Immature 0.110 H 0.160 H Granulocytes # Neutrophils # 11.3 H 11.5 H Lymphocytes # 1.2 0.7 L Monocytes # 1.2 H 1.0 H Eosinophils # 0.4 0.3 Basophils # 0.0 0.1 Nucleated Red 0.0 0.0 Blood Cells # Sodium Level 139 Potassium Level 4.3 Chloride Level 110 Carbon Dioxide 21 Level Anion Gap 8 Blood Urea 23 H Nitrogen Creatinine 0.92 Est Glomerular > 60 Filtrat Rate mL/min Glucose Level 101 Calcium Level 6.9 L Troponin I 0.035 Subjective 24 Hr Interval Summary Free Text/Dictation c/o chest pain, intermittent, reports hx of CM, remote hx of alcohol use and ongoing intermittent drug use, no further hematemesis, last episode yesterday Exam/Review of Systems Vital Signs Vitals Vital Signs Date Temp Pulse Resp B/P (MAP) Pulse Ox O2 O2 Flow FiO2 Time Delivery Rate 08/29/18 72 16:00 08/29/18 98.8 18 132/58 96 15:30 (82) 08/29/18 Room Air 11:00 08/29/18 2.0 00:45 Intake and Output 108/28/18 08/29/18 1515:00 23:00 07:00 IntakeIntake Total 3030 ml 100.000 ml OutputOutput Total 250 ml 610 ml BalanceBalance 2780 ml -510.000 ml Exam Constitutional: alert, oriented, other (asthenic) Psych: nl mood/affect Head: normocephalic Eyes: PERRL Neck: supple Respiratory: clear to auscultation, diminished breath sounds Cardiovascular: regular rate and rhythm; No murmurs/extra sounds Gastrointestinal: soft, non-tender, bowel sounds Extremities: No edema Neurological: nl mental status Medications Medications Current Medications Ondansetron HCl (Zofran Inj) 4 mg Q6H PRN IV NAUSEA AND/OR VOMITING; Start 08/28/18 at 20:30 Albuterol (Proventil 0.083% (Neb)) 2.5 mg Q2H RESP THERAPY PRN NEB SHORTNESS OF BREATH; Start 08/28/18 at 20:30 Ipratropium [place] (Atrovent 0.02% (Neb)) 0.5 mg Q2H RESP THERAPY PRN NEB SHORTNESS OF BREATH; Start 08/28/18 at 20:30 Acetaminophen (Tylenol Liquid) 650 mg Q6H PRN PO PAIN LEVEL 1-3 OR FEVER; Start 08/28/18 at 20:30 Pantoprazole 80 mg/Sodium Chloride 100 ml @ 10 mls/hr Q10H IV Last administered on 08/29/18at 12:56; Admin Dose 10 MLS/HR; Start 08/28/18 at 20:30 Levetiracetam 100 ml @ 400 mls/hr Q12 IVPB Last administered on 08/29/18at 11:46; Admin Dose 400 MLS/HR; Start 08/28/18 at 21:00 Nitroglycerin (Nitroglycerin (Sl Tab) 0.4 Mg) 1 tab Q5M PRN SL ANGINA Last ad ministered on 08/29/18at 08:21; Admin Dose 1 TAB; Start 08/29/18 at 07:30 Clonazepam (Klonopin) 1 mg DAILY PRN PO ANXIETY Last administered on 08/29/18at 11:51; Admin Dose 1 MG; Start 08/29/18 at 08:30 Trazodone HCl (Desyrel) 100 mg QHS PO ; Start 08/29/18 at 21:00 Imaging Imaging PROCEDURE: CT Abdomen and Pelvis without contrast. CLINICAL INDICATION: Pain. TECHNIQUE: CT scan of the abdomen and pelvis was performed on a multidetector slice CT scanner. No intravenous contrast material was utilized. Sagittal and coronal reformatted images were obtained from the axial source images. Images were reviewed on a high-resolution PACS workstation. Exam CTDlvol = 5 mGy and DLP = 160 Gy-cm. One of the following 3 dose reduction techniques were used: Automated exposure control; adjustment of the mA and/or kV according to patient size; or use of iterative reconstruction technique. DICOM images are available. COMPARISON: 06/27/2018. FINDINGS: Small hiatal hernia is present. There is no obstruction or ileus. There is moderate retained stool throughout the colon. The appendix is not distinctly visualized. There is no secondary evidence for appendicitis.. There is no evidence for diverticulitis. There is no free fluid. The liver is overall normal in size. No intrahepatic lesions are identified. The gallbladder is normal in appearance. There is no definite biliary ductal dilation. Pancreas is normal in appearance. The spleen is unremarkable.. There are no adrenal masses. The aorta is normal caliber. Atherosclerotic vascular calcifications are present.. Kidneys are normal in appearance without hydronephrosis, mass or calculus.. Ureters are of normal caliber and without evidence for an obstructing calculus. The urinary bladder is normal in appearance.. Limited evaluation of the lung bases demonstrates severe emphysematous changes and peripheral scarring / fibrosis. There are degenerative changes throughout the lumbar spine. There is metal artifact from a right femoral intramedullary elvis partially included. IMPRESSION: 1. No bowel obstruction or ileus. Moderate retained stool throughout the colon compatible with constipation. 2. Small hiatal hernia. 3. Appendix not identified. 4. No evidence for diverticulitis. 5. No obstructive uropathy. Previously demonstrated possible nodule within the urinary bladder is not identified. 6. Redemonstrated severe emphysematous changes and peripheral scarring / fibrosis a at the lung bases. 7. Degenerative changes of the lumbar spine. 8. Proximal right femoral intramedullary elvis. 9. Atherosclerotic vascular calcifications. RPTAT: HMVK .Carlos Trotter MD, Date Time Electronically viewed and signed by .Carlos Trotter MD, MD on 08/28/2018 20:54 .K/ CC: STARLA WILDE MD ABE, BOLATITO M. Aug 29, 2018 16:57
[2018-08-29] MEDS ORDERED: BISACODYL (EC) 5 MG TAB PO ONE (17:00)
[2018-08-29] MEDS ORDERED: MAGNESIUM CITRATE 300 ML BTL PO ONE (17:30)
[2018-08-29] MEDS ORDERED: POLYETHYLENE GLYCOL 3350 119 GM POWDER PO ONE (18:30)
[2018-08-29] MEDS: GABAPENTIN 400 MG CAP PO SCH ×2 (18:44→20:31)
[2018-08-29] MEDS: DOCUSATE SODIUM 100 MG CAP PO SCH (20:31)
[2018-08-29] MEDS: MIRTAZAPINE 15 MG TAB PO SCH (20:31)
[2018-08-29] MEDS: traZODone 100 MG TAB PO SCH (20:31)
[2018-08-29] MEDS: ATORVASTATIN 20 MG TAB PO SCH (20:31)
[2018-08-30] VITALS (25 sets, daily range): BP systolic 83–172; BP diastolic 51–82; PULSE 60–85; RESP 12–31
[2018-08-30] MEDS: PANTOPRAZOLE IV 80 MG in SOD CHLORIDE 0.9% 100 ML IV SCH ×3 (02:30→22:20)
[2018-08-30] MEDS ORDERED: POLYETHYLENE GLYCOL 3350 119 GM POWDER PO ONE (06:00)
[2018-08-30] MEDS ORDERED: BISACODYL (EC) 5 MG TAB PO ONE (08:00)
[2018-08-30] MEDS: FLUOXETINE 20 MG CAP PO SCH (09:04)
[2018-08-30] MEDS: GABAPENTIN 400 MG CAP PO SCH ×2 (09:04→17:00)
[2018-08-30] MEDS: LEVETIRACETAM 1000 MG (PMX) 100 ML IVPB SCH ×2 (09:04→20:49)
[2018-08-30] MEDS ORDERED: CALCIUM GLUCONATE 10% 2 GM in DEXTROSE 5% 100 ML IVPB ONE (12:00)
--- NOTE | 2018-08-30 13:52 | CONS ---
Date/Time of Note Date/Time of Note DATE: 08/30/18 TIME: 13:38 Assessment/Plan Assessment/Plan Hospital Course Chest pain: Very atypical, upper right chest wall. No EKG changes and negative troponins. No current symptoms. Noncardiac and no further workup is necessary Severe anemia: Hgb 2.9 on admission. s/p 5 units. No active bleeding. Plan for EGD today CAD s/p PCI 2 yrs ago ?Cardiomyopathy: EF normal 07/07 COPD/ILD -ok to proceed with EGD as low risk procedure and noncardiac chest wall pain -resume ASA without plavix as soon as safe from GI perspective -restart coreg 3.125mg BID as BP now ok -continue lipitor Result Diagram: 08/30/18 0306 08/29/18 0558 Results 24hrs Laboratory Tests Test 08/29/18 19:55 08/30/18 03:06 White Blood Count 10.6 # 9.8 Red Blood Count 3.48 L 3.51 L Hemoglobin 9.6 L 9.7 L Hematocrit 28.4 L 28.8 L Mean Corpuscular Volume 81.6 L 82.1 Mean Corpuscular Hemoglobin 27.6 L 27.6 L Mean Corpuscular Hemoglobin Concent 33.8 33.7 Red Cell Distribution Width 15.1 H 15.2 H Platelet Count 268 258 Mean Platelet Volume 9.6 9.8 Immature Granulocytes % 0.700 H 0.700 H Neutrophils % 71.6 66.6 Lymphocytes % 12.1 L 12.7 L Monocytes % 10.6 11.1 H Eosinophils % 4.6 8.3 H Basophils % 0.4 0.6 Nucleated Red Blood Cells % 0.3 H 0.0 Immature Granulocytes # 0.070 H 0.070 H Neutrophils # 7.6 H 6.5 Lymphocytes # 1.3 1.2 Monocytes # 1.1 H 1.1 H Eosinophils # 0.5 0.8 H Basophils # 0.0 0.1 Nucleated Red Blood Cells # 0.0 0.0 Consultation Date/Type/Reason Admit Date/Time Date of Consultation: Aug 30, 2018 Type of Consult Cardiology Reason for Consultation Chest pain Requesting Provider: NURY DE LEON Hx of Present Illness 68 yo M with a h/o anemia, CAD s/p PCI 2 yrs prior, cardiomyopathy (per pt but EF normal 07/07), who presented from his assisted living facility with altered mentation was noted to be hypotensive and with hgb of 2.9. He is now s/p 5 units PRBCs. He had mentioned chest pain for which cardiology is consulted. He is now awake and able to give a history though he is a poor historian. He notes that he had a stent 2 yrs ago. No issues since then. He gets episodes of right upper chest wall pain lasting up to 2 seconds which self resolve. Otherwise no substernal chest pain. No chest pain or SOB at this time. Plan for EGD today. per hPI Past Medical History per hPI Medications Current Medications Ondansetron HCl (Zofran Inj) 4 mg Q6H PRN IV NAUSEA AND/OR VOMITING; Start 08/28/18 at 20:30 Albuterol (Proventil 0.083% (Neb)) 2.5 mg Q2H RESP THERAPY PRN NEB SHORTNESS OF BREATH; Start 08/28/18 at 20:30 Ipratropium [place] (Atrovent 0.02% (Neb)) 0.5 mg Q2H RESP THERAPY PRN NEB SHORTNESS OF BREATH; Start 08/28/18 at 20:30 Acetaminophen (Tylenol Liquid) 650 mg Q6H PRN PO PAIN LEVEL 1-3 OR FEVER; Start 08/28/18 at 20:30 Pantoprazole 80 mg/Sodium Chloride 100 ml @ 10 mls/hr Q10H IV Last administered on 08/30/18at 12:47; Admin Dose 10 MLS/HR; Start 08/28/18 at 20:30 Levetiracetam 100 ml @ 400 mls/hr Q12 IVPB Last administered on 08/30/18at 09:04; Admin Dose 400 MLS/HR; Start 08/28/18 at 21:00 Nitroglycerin (Nitroglycerin (Sl Tab) 0.4 Mg) 1 tab Q5M PRN SL ANGINA Last administered on 08/29/18at 08:21; Admin Dose 1 TAB; Start 08/29/18 at 07:30 Clonazepam (Klonopin) 1 mg DAILY PRN PO ANXIETY Last administered on 08/29/18at 11:51; Admin Dose 1 MG; Start 08/29/18 at 08:30 Trazodone HCl (Desyrel) 100 mg QHS PO Last administered on 08/29/18 20:31; Admin Dose 100 MG; Start 08/29/18 at 21:00 Atorvastatin Calcium (Lipitor) 20 mg QHS PO Last administered on 08/29/18 20:31; Admin Dose 20 MG; Start 08/29/18 at 21:00 Docusate Sodium (Colace) 100 mg QHS PO Last administered on 08/29/18 20:31; Admin Dose 100 MG; Start 08/29/18 at 21:00 Fluoxetine HCl (Prozac) 80 mg DAILY PO Last administered on 08/30/18at 09:04; Admin Dose 80 MG; Start 08/30/18 at 09:00 Gabapentin (Neurontin) 400 mg Q8H PO Last administered on 08/30/18 09:04; Admin Dose 400 MG; Start 08/29/18 at 17:00 Mirtazapine (Remeron) 15 mg HS PO Last administered on 08/29/18 20:31; Admin Dose 15 MG; Start 08/29/18 at 21:00 Calcium Gluconate 2 gm/Sodium Chloride 120 ml @ 60 mls/hr ONCE ONCE IVPB ; Start 08/30/18 at 14:00; Stop 08/30/18 at 15:59 Allergies: Coded Allergies: No Known Allergy (Unverified , 08/28/18) Social History Smoking Status: Former smoker Drug Use: marijuana Exam/Review of Systems Vital Signs Vitals Vital Signs Date Temp Pulse Resp B/P (MAP) Pulse Ox O2 O2 Flow FiO2 Time Delivery Rate 08/30/18 85 12:00 08/30/18 98.3 15 134/66 97 Room Air 12:00 (88) 08/29/18 2.0 00:45 Intake and Output 08/29/18 08/29/18 08/30/18 1515:00 23:00 07:00 IntakeIntake Total 220.8 ml 360 ml 2720 ml OutputOutput Total 335 ml 400 ml 1800 ml BalanceBalance -114.2 ml -40 ml 920 ml Exam Constitutional: alert, oriented Psych: no complaints, nl mood/affect Head: normocephalic, atraumatic Neck: supple; No jvd Respiratory: diminished breath sounds; No clear to auscultation Cardiovascular: regular rate and rhythm; No edema, No systolic murmur (unableto auscultate due to distant heart sounds ) Gastrointestinal: soft, non-tender; No distended Neurological: nl mental status, nl speech Medications Medications Current Medications Ondansetron HCl (Zofran Inj) 4 mg Q6H PRN IV NAUSEA AND/OR VOMITING; Start 08/28/18 at 20:30 Albuterol (Proventil 0.083% (Neb)) 2.5 mg Q2H RESP THERAPY PRN NEB SHORTNESS OF BREATH; Start 08/28/18 at 20:30 Ipratropium [place] (Atrovent 0.02% (Neb)) 0.5 mg Q2H RESP THERAPY PRN NEB SHORTNESS OF BREATH; Start 08/28/18 at 20:30 Acetaminophen (Tylenol Liquid) 650 mg Q6H PRN PO PAIN LEVEL 1-3 OR FEVER; Start 08/28/18 at 20:30 Pantoprazole 80 mg/Sodium Chloride 100 ml @ 10 mls/hr Q10H IV Last administered on 08/30/18at 12:47; Admin Dose 10 MLS/HR; Start 08/28/18 at 20:30 Levetiracetam 100 ml @ 400 mls/hr Q12 IVPB Last administered on 08/30/18at 09:04; Admin Dose 400 MLS/HR; Start 08/28/18 at 21:00 Nitroglycerin (Nitroglycerin (Sl Tab) 0.4 Mg) 1 tab Q5M PRN SL ANGINA Last admi nistered on 08/29/18at 08:21; Admin Dose 1 TAB; Start 08/29/18 at 07:30 Clonazepam (Klonopin) 1 mg DAILY PRN PO ANXIETY Last administered on 08/29/18at 11:51; Admin Dose 1 MG; Start 08/29/18 at 08:30 Trazodone HCl (Desyrel) 100 mg QHS PO Last administered on 08/29/18 20:31; Admin Dose 100 MG; Start 08/29/18 at 21:00 Atorvastatin Calcium (Lipitor) 20 mg QHS PO Last administered on 08/29/18 20:31; Admin Dose 20 MG; Start 08/29/18 at 21:00 Docusate Sodium (Colace) 100 mg QHS PO Last administered on 08/29/18 20:31; Admin Dose 100 MG; Start 08/29/18 at 21:00 Fluoxetine HCl (Prozac) 80 mg DAILY PO Last administered on 08/30/18at 09:04; Admin Dose 80 MG; Start 08/30/18 at 09:00 Gabapentin (Neurontin) 400 mg Q8H PO Last administered on 08/30/18at 09:04; Admin Dose 400 MG; Start 08/29/18 at 17:00 Mirtazapine (Remeron) 15 mg HS PO Last administered on 08/29/18at 20:31; Admin Dose 15 MG; Start 08/29/18 at 21:00 Calcium Gluconate 2 gm/Sodium Chloride 120 ml @ 60 mls/hr ONCE ONCE IVPB ; Start 08/30/18 at 14:00; Stop 08/30/18 at 15:59 CHINA CODY Aug 30, 2018 13:52
[2018-08-30] MEDS ORDERED: CALCIUM GLUCONATE 10% 2 GM in SOD CHLORIDE 0.9% 100 ML IVPB ONE (14:00)
--- NOTE | 2018-08-30 17:11 | PREAC ---
Date/Time of Note Date/Time of Note DATE: 08/30/18 TIME: 17:09 Anesthesia Eval and Record Evaluation Time Pre-Procedure Interview DATE: 08/30/18 TIME: 17:09 Age 68 Sex male NPO: 8 hrs Preoperative diagnosis Severe Anemia Planned procedure EGD, Colonoscopy Past Medical History Past Medical History: Includes Cardio: HTN, Dyslipidemia, CAD, CHF, Other (Cardiomyopathy) Neuro: Seizure disorder Heme: Anemia Psych: Anxiety Recreational drugs: Marijuana Surgery & Anesthesia Issues No known issue Meds Anticoagulation: No Beta Pretty within 24 hr: No Reason Beta Pretty not given: Pt. not on B-Pretty Reported Medications Guaifenesin/Codeine Phos (Guaifenesin-Codeine Syrup) 118 Ml Syrup, 5 ML PO Q6H PRN for NEEDED 08/28/18 Oxycodone Hcl* (IR) (Oxycodone Hcl*) 15 Mg Tablet, 15 MG PO Q6H PRN for PAIN, TAB 08/28/18 Docusate Sodium* (Colace*) 100 Mg Capsule, 100 MG PO QHS, #30 CAP 08/28/18 Carvedilol* (Carvedilol*) 3.125 Mg Tablet, 3.125 MG PO BID, #60 TAB 08/28/18 Clonazepam* (Clonazepam*) 1 Mg Tablet, 1 MG PO NEEDED PRN for ANXIETY, TAB 08/28/18 Gabapentin* (Gabapentin*) 400 Mg Capsule, 400 MG PO Q8H, #90 CAP 08/28/18 Ivabradine HCl (Corlanor) 5 Mg Tablet, 2.5 MG PO BID, #60 TAB 08/28/18 Clopidogrel Bisulfate* (Clopidogrel Bisulfate*) 75 Mg Tablet, 75 MG PO DAILY, #30 TAB 08/28/18 Atorvastatin Calcium* (Atorvastatin Calcium*) 20 Mg Tablet, 20 MG PO QHS, #30 TAB 08/28/18 Aspirin* (Aspirin* EC) 81 Mg Tablet.dr, 81 MG PO DAILY, TAB 08/28/18 Quetiapine Fumarate* (Quetiapine Fumarate*) 50 Mg Tablet, 50 MG PO Q8H, TAB 08/28/18 Levetiracetam* (Levetiracetam*) 1,000 Mg Tablet, 1000 MG PO BID, TAB 08/28/18 Trazodone Hcl* (Trazodone Hcl*) 100 Mg Tablet, 100 MG PO QHS, #30 TAB 08/28/18 Spironolactone* (Aldactone*) 25 Mg Tablet, 12.5 MG PO DAILY, #30 TAB 08/28/18 Mirtazapine* (Mirtazapine*) 15 Mg Tablet, 15 MG PO HS, TAB 08/28/18 Lisinopril* (Lisinopril*) 2.5 Mg Tablet, 2.5 MG PO DAILY, #30 TAB HOLD IF SBP<90 08/28/18 Fluoxetine Hcl* (Fluoxetine Hcl*) 40 Mg Capsule, 80 MG PO DAILY, CAP 08/28/18 Discontinued Reported Medications Levetiracetam* (Levetiracetam*) 1,000 Mg Tablet, 1000 MG PO BID, TAB 06/27/18 Fluoxetine Hcl* (Fluoxetine Hcl*) 40 Mg Capsule, 40 MG PO DAILY, CAP 06/27/18 Clopidogrel Bisulfate (Clopidogrel) 75 Mg Tablet, 75 MG PO DAILY, TAB 05/25/14 Trazodone Hcl* (Trazodone Hcl*) 50 Mg Tablet, 50 MG PO HS, TAB 05/25/14 Atorvastatin* (Atorvastatin*) 40 Mg Tablet, 40 MG PO HS, TAB 05/25/14 Current Medications Ondansetron HCl (Zofran Inj) 4 mg Q6H PRN IV NAUSEA AND/OR VOMITING; Start 08/28/18 at 20:30 Albuterol (Proventil 0.083% (Neb)) 2.5 mg Q2H RESP THERAPY PRN NEB SHORTNESS OF BREATH; Start 08/28/18 at 20:30 Ipratropium [place] (Atrovent 0.02% (Neb)) 0.5 mg Q2H RESP THERAPY PRN NEB SHORTNESS OF BREATH; Start 08/28/18 at 20:30 Acetaminophen (Tylenol Liquid) 650 mg Q6H PRN PO PAIN LEVEL 1-3 OR FEVER; Start 08/28/18 at 20:30 Pantoprazole 80 mg/Sodium Chloride 100 ml @ 10 mls/hr Q10H IV Last administered on 08/30/18at 12:47; Admin Dose 10 MLS/HR; Start 08/28/18 at 20:30 Levetiracetam 100 ml @ 400 mls/hr Q12 IVPB Last administered on 08/30/18at 09:04; Admin Dose 400 MLS/HR; Start 08/28/18 at 21:00 Nitroglycerin (Nitroglycerin (Sl Tab) 0.4 Mg) 1 tab Q5M PRN SL ANGINA Last administered on 08/29/18 08:21; Admin Dose 1 TAB; Start 08/29/18 at 07:30 Clonazepam (Klonopin) 1 mg DAILY PRN PO ANXIETY Last administered on 08/29/18 11:51; Admin Dose 1 MG; Start 08/29/18 at 08:30 Trazodone HCl (Desyrel) 100 mg QHS PO Last administered on 08/29/18 20:31; Admin Dose 100 MG; Start 08/29/18 at 21:00 Atorvastatin Calcium (Lipitor) 20 mg QHS PO Last administered on 08/29/18 20:31; Admin Dose 20 MG; Start 08/29/18 at 21:00 Docusate Sodium (Colace) 100 mg QHS PO Last administered on 08/29/18 20:31; Admin Dose 100 MG; Start 08/29/18 at 21:00 Fluoxetine HCl (Prozac) 80 mg DAILY PO Last administered on 08/30/18 09:04; Admin Dose 80 MG; Start 08/30/18 at 09:00 Gabapentin (Neurontin) 400 mg Q8H PO Last administered on 08/30/18 09:04; Admin Dose 400 MG; Start 08/29/18 at 17:00 Mirtazapine (Remeron) 15 mg HS PO Last administered on 08/29/18 20:31; Admin Dose 15 MG; Start 08/29/18 at 21:00 Carvedilol (Coreg) 3.125 mg BID PO ; Start 08/30/18 at 21:00 Meds reviewed: Yes Allergies Coded Allergies: No Known Allergy (Unverified , 08/28/18) Allergies Reviewed: Yes Labs/Studies Labs Reviewed: Reviewed by anesthesiologist Result Diagram: 08/30/18 0306 08/29/18 0558 Laboratory Tests 08/30/18 03:06 test: N/A Studies: ECG (NSR), CXR (n/a) Pre-procedure Exam Last vitals Vital Signs Date Temp Pulse Resp B/P (MAP) Pulse Ox O2 O2 Flow FiO2 Time Delivery Rate 08/30/18 75 16:00 08/30/18 98.0 16 128/67 98 Room Air 15:55 (87) 08/29/18 2.0 00:45 Airway: Adequate mouth opening, Adequate thyromental dist Mallampati: Mallampati II Teeth: Normal Lung: Normal Heart: Normal ASA Physical Status ASA physical status: 3 Emergency: None Planned Anesthetic General/MAC: MAC Planned Pain Management Parenteral pain med Pre-operative Attestations Prior to commencing anesthesia and surgery, the patient was re-evaluated, there was verification of: *The patient's identity *The results of appropriate recent lab work and preoperative vital signs *The above evaluation not changing prior to induction *Anesthetic plan, risk benefits, alternative and complications discussed with patient/family; questions answered; patient/family understands, accepts and wishes to proceed. HAO OCHOA MD Aug 30, 2018 17:11
[2018-08-30] MEDS ORDERED: PROPOFOL 40 ML ONE (17:29)
[2018-08-30] MEDS ORDERED: FENTAnyl 50 MCG/ML VIAL IV PRN (17:30)
[2018-08-30] MEDS ORDERED: hydrALAzine 20 MG INJ IV PRN (17:30)
[2018-08-30] MEDS ORDERED: ONDANSETRON 4 MG INJ IV PRN (17:30)
[2018-08-30] MEDS ORDERED: morphine (1 MG/ML) 10ML SYRINGE IV PRN (17:30)
[2018-08-30] MEDS ORDERED: EPHEDrine SULFATE 50 MG/5 ML SYG IV PRN (17:30)
[2018-08-30] MEDS ORDERED: LABETALOL HCL 20MG INJ IV PRN (17:30)
--- NOTE | 2018-08-30 17:31 | PAC ---
Date/Time of Note Date/Time of Note DATE: 08/30/18 TIME: 17:30 Post-Anesthesia Notes Post-Anesthesia Note Last documented vital signs Vital Signs Date Temp Pulse Resp B/P (MAP) Pulse Ox O2 O2 Flow FiO2 Time Delivery Rate 08/30/18 98.6 74 12 172/82 100 Room Air 17:32 (112) 08/29/18 2.0 00:45 Activity: WNL Respiratory function: WNL Cardiovascular function: WNL Mental status: Baseline Pain reasonably controlled: Yes Hydration appropriate: Yes Nausea/Vomiting absent: Yes HAO OCHOA MD Aug 30, 2018 17:31
--- NOTE | 2018-08-30 17:37 | HPN ---
Date/Time of Note Date/Time of Note DATE: 08/30/18 TIME: 17:37 Interval H&P Admission Note Pt. seen H&P reviewed: No system changes KERLINE SHARMA MD Aug 30, 2018 17:37
[2018-08-30] MEDS: METOCLOPRAMIDE 10 MG TAB PO SCH ×2 (18:00→22:00)
[2018-08-30] MEDS: SUCRALFATE (100 MG/ML) 10ML CUP PO SCH (20:41)
[2018-08-30] MEDS: DOCUSATE SODIUM 100 MG CAP PO SCH (20:42)
[2018-08-30] MEDS: traZODone 100 MG TAB PO SCH ×2 (20:43→20:52)
[2018-08-30] MEDS: MIRTAZAPINE 15 MG TAB PO SCH (20:43)
[2018-08-30] MEDS: ATORVASTATIN 20 MG TAB PO SCH (20:48)
[2018-08-30] MEDS: morphine SULFATE/PF (2 MG/2 ML) SYG IV PRN (22:23)
[2018-08-31] VITALS (11 sets, daily range): BP systolic 104–132; BP diastolic 53–79; PULSE 59–79; RESP 18–22
[2018-08-31] MEDS: GABAPENTIN 400 MG CAP PO SCH ×3 (01:07→16:04)
--- NOTE | 2018-08-31 01:51 | RADRPT ---
Vent Rate: 78 bpm RR Interval: 0 msec NV Interval: 120 msec QRS Duration: 80 msec QT Interval: 408 msec QTC Interval: 465 msec P-R-T Marks: 83 - 83 - 81 degrees Sinus rhythm with frequent premature ventricular complexes Otherwise normal ECG Electronically Signed By: Bob Riddle [id number]
[2018-08-31] MEDS: PANTOPRAZOLE IV 80 MG in SOD CHLORIDE 0.9% 100 ML IV SCH (02:00)
--- NOTE | 2018-08-31 05:36 | PN ---
DATE: 08/30/2018 SUBJECTIVE: The patient continues to report intermittent chest pain, though he was very comfortable when I walked in and he says his chest pain is on and off, located in the midsternal area. PHYSICAL EXAMINATION: VITAL SIGNS: Temperature 98.0, pulse 79, respirations 16, blood pressure 135/69, saturations 97% on room air. GENERAL: The patient was sleeping, but easily arousable, was arousable looked comfortable. HEENT: Head is normocephalic. Pupils equal and reactive. NECK: Supple. CHEST: Clear. CARDIOVASCULAR: S1 and S2. ABDOMEN: Soft, nontender, nondistended. EXTREMITIES: There is no lower extremity edema. LABORATORY VALUES: White count 9.8, normal, hemoglobin is stable at 9.7, platelet count is 258. On his chemistry, his calcium is slightly low at 6.9 and so far, we have 2 negative troponin levels. IMAGING: Chest x-ray from 08/29/2018 showed that there is an opacity in the right mid lower lung concerning for pneumonia, showed COPD as well. ASSESSMENT AND PLAN: 1. A 68-year-old male who had come in with severe anemia that has resolved with transfusion of 5 units of packed red cells, which was done for GI bleed. The patient is planned for EGD, colonoscopy today per GI. 2. Lactic acidosis secondary to hypoperfusion: Resolved. 3. Chest pain: Complete ACS rule out, cardiology consult. The patient is also to have upcoming procedure. We will also get a 2D echo. 4. History of coronary artery disease. Last echo in this facility showed EF of about 60%. Continue statins. Continue to hold Plavix for GI bleed. 5. Concerns for possible pneumonia. The patient does not seem overtly symptomatic. Will consider beginning empiric antibiotics for possible aspiration if necessary. 6. History of seizure disorder. Continue Keppra 7. Chronic depression. Continue home medications. 8. History of chronic obstructive pulmonary disease on p.r.n. bronchodilators as well as hypocalcemia for which we will replete. DISPOSITION: Cardiology review , echo and EGD, colonoscopy today and close monitoring for need for antibiotic therapy. Dictated By: NURY DE LEON MD BA/HUBER Conf#: [id number] DID#: [id number] CC: OMI GARVEY MD;*EndCC* MTDD
[2018-08-31] MEDS: METOCLOPRAMIDE 10 MG TAB PO SCH ×3 (06:00→21:05)
[2018-08-31] MEDS: SUCRALFATE (100 MG/ML) 10ML CUP PO SCH ×4 (08:38→20:44)
[2018-08-31] MEDS: FLUOXETINE 20 MG CAP PO SCH (08:38)
[2018-08-31] MEDS: LEVETIRACETAM 1000 MG (PMX) 100 ML IVPB SCH ×2 (08:43→20:44)
[2018-08-31] MEDS: morphine SULFATE/PF (2 MG/2 ML) SYG IV PRN ×2 (08:50→21:36)
--- NOTE | 2018-08-31 10:08 | PN ---
Date/Time of Note Date/Time of Note DATE: 08/31/18 TIME: 10:02 Assessment/Plan VTE Prophylaxis [place] [facility] [place] [facility] risk: 5 [place]CD applied [place] [facility] Yes Pharmacological prophylaxis: NA/contraindicated Pharm contraindication: bleeding (GI bleeding) Lines/Catheters IV Catheter Type (from [facility]): Central Line Central line still needed: Yes Urinary Cath still in place: Yes Reason Cath still needed: urinary retention Assessment/Plan Problems: (1) Upper GI bleed Status: Acute Comment: Does not appear to his continued bleeding. I will continue the Protonix drip overnight and start oral Protonix tomorrow morning. Please see gastroenterology and endoscopy reports (2) Esophagitis determined by endoscopy Status: Chronic Comment: Await head of bed 30 degrees at all times continue with the Reglan Carafate nighttime Zantac and daytime proton pump inhibitor (3) Esophagitis, erosive Status: Chronic Comment: Noted and hopefully improving (4) Severe anemia Status: Acute Comment: Improved. Please note this patient was here last June and had a significant iron deficiency anemia. And get a go ahead and give him intravenous iron to help replete this. The iron levels that are on this admission were done after transfusion are therefore not usable (5) Grade I diastolic dysfunction Status: Chronic Comment: Noted. 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 I am concerned about his outpatient environment given how slender he is. (7) Depression Status: Chronic Comment: On treatment. Qualifiers: Depression Type: major depressive disorder (8) Hx of seizure disorder Status: Chronic Comment: Remains on treatment. (9) Lactic acidosis Status: Resolved Comment: Resolved (10) Hypotension Status: Resolved Comment: Resolved fortunately Qualifiers: Hypotension type: hypotension due to hypovolemia Qualified Codes: I95.89 - Other hypotension; E86.1 - Hypovolemia (11) Hyperlipidemia Status: Chronic Comment: Maintain statin therapy Qualifiers: Hyperlipidemia type: pure hypercholesterolemia Qualified Codes: E78.00 - Pure hypercholesterolemia, unspecified (12) Internal hemorrhoids Status: Chronic Comment: Noted. No intervention needed Result Diagram: 08/30/18 0306 08/29/18 0558 Results 24hrs Laboratory Tests Test 08/30/18 14:28 Creatine Kinase 38 Creatine Kinase Index 1.6 Creatinine Kinase MB (Mass) 0.60 Troponin I < 0.012 Subjective 24 Hr Interval Summary Free Text/Dictation Patient reports that he is just starting to be able to take p.o. He is very upset and frustrated about his not being able to take orally for the last 9 days Constitutional: no complaints (Denies fevers chills or sweats) ENT: no complaints Respiratory: no complaints Cardiovascular: no complaints Gastrointestinal: nausea Musculoskeletal: no complaints Exam/Review of Systems Vital Signs Vitals Vital Signs Date Temp Pulse Resp B/P (MAP) Pulse Ox O2 O2 Flow FiO2 Time Delivery Rate 08/31/18 70 08:01 08/31/18 98.1 18 132/79 94 07:15 (96) 08/30/18 Room Air 18:29 08/30/18 8.0 17:59 Intake and Output 08/30/18 08/30/18 08/31/18 1515:00 23:00 07:00 IntakeIntake Total 100 ml 850 ml OutputOutput Total 1400 ml BalanceBalance 100 ml -550 ml Exam Oriented to person and place. Constitutional: alert, other (Underweight male who is somewhat pale) Neck: supple, non-tender Respiratory: clear to auscultation, normal air movement Cardiovascular: regular rate and rhythm, nl pulses Gastrointestinal: soft, nl liver, spleen, non-tender Medications Medications Current Medications Ondansetron HCl (Zofran Inj) 4 mg Q6H PRN IV NAUSEA AND/OR VOMITING Last administered on 08/31/18at 08:37; Admin Dose 4 MG; Start 08/28/18 at 20:30 Albuterol (Proventil 0.083% (Neb)) 2.5 mg Q2H RESP THERAPY PRN NEB SHORTNESS OF BREATH; Start 08/28/18 at 20:30 Ipratropium [place] (Atrovent 0.02% (Neb)) 0.5 mg Q2H RESP THERAPY PRN NEB SHORTNESS OF BREATH; Start 08/28/18 at 20:30 Acetaminophen (Tylenol Liquid) 650 mg Q6H PRN PO PAIN LEVEL 1-3 OR FEVER; Start 08/28/18 at 20:30 Pantoprazole 80 mg/Sodium Chloride 100 ml @ 10 mls/hr Q10H IV Last administered on 08/31/18at 02:00; Admin Dose 10 MLS/HR; Start 08/28/18 at 20:30 Levetiracetam 100 ml @ 400 mls/hr Q12 IVPB Last administered on 08/31/18 08:43; Admin Dose 400 MLS/HR; Start 08/28/18 at 21:00 Nitroglycerin (Nitroglycerin (Sl Tab) 0.4 Mg) 1 tab Q5M PRN SL ANGINA Last administered on 08/29/18 08:21; Admin Dose 1 TAB; Start 08/29/18 at 07:30 Clonazepam (Klonopin) 1 mg DAILY PRN PO ANXIETY Last administered on 08/29/18 11:51; Admin Dose 1 MG; Start 08/29/18 at 08:30 Trazodone HCl (Desyrel) 100 mg QHS PO Last administered on 08/29/18 20:31; Admin Dose 100 MG; Start 08/29/18 at 21:00 Atorvastatin Calcium (Lipitor) 20 mg QHS PO Last administered on 08/30/18 20:48; Admin Dose 20 MG; Start 08/29/18 at 21:00 Docusate Sodium (Colace) 100 mg QHS PO Last administered on 08/29/18 20:31; Admin Dose 100 MG; Start 08/29/18 at 21:00 Fluoxetine HCl (Prozac) 80 mg DAILY PO Last administered on 08/31/18 08:38; Admin Dose 80 MG; Start 08/30/18 at 09:00 Gabapentin (Neurontin) 400 mg Q8H PO Last administered on 08/31/18 08:38; Admin Dose 400 MG; Start 08/29/18 at 17:00 Mirtazapine (Remeron) 15 mg HS PO Last administered on 08/30/18 20:43; Admin Dose 15 MG; Start 08/29/18 at 21:00 Carvedilol (Coreg) 3.125 mg BID PO Last administered on 08/31/18 08:38; Admin Dose 3.125 MG; Start 08/30/18 at 21:00 Sucralfate (Carafate Susp) 1 gm QID PO Last administered on 08/31/18 08:38; Admin Dose 1 GM; Start 08/30/18 at 21:00 Metoclopramide HCl (Reglan) 10 mg Q8 PO ; Start 08/30/18 at 18:00 Morphine Sulfate (morphine SULFATE (PF)) 1 mg Q4H PRN IV SEVERE PAIN LEVEL 7-10 Last administered on 08/31/18at 08:50; Admin Dose 1 MG; Start 08/30/18 at 21:00 Pantoprazole (Protonix Tab) 40 mg DAILY@06 PO ; Start 09/01/18 at 06:00; Status UNV Ranitidine HCl (Zantac) 150 mg HS PO ; Start 08/31/18 at 21:00 Ferric Sodium Gluconate Complex 125 mg/Sodium Chloride 100 ml @ 100 mls/hr DAILY@1300 IVPB ; Start 08/31/18 at 13:00; Stop 09/02/18 at 13:59 DANIAL DONATO MD Aug 31, 2018 10:08
--- NOTE | 2018-08-31 11:52 | CONS ---
Date/Time of Note Date/Time of Note DATE: 08/31/18 TIME: 11:51 Assessment/Plan Assessment/Plan Hospital Course Chest pain: Very atypical, upper right chest wall. No EKG changes and negative troponins. No current symptoms. Noncardiac and no further workup is necessary Severe anemia: Hgb 2.9 on admission. s/p 5 units. No active bleeding. s/p EGD/colo but reports are not available. CAD s/p PCI 2 yrs ago ?Cardiomyopathy: EF normal 07/07 COPD/ILD -resume ASA without plavix as soon as safe from GI perspective -coreg 3.125mg BID -continue lipitor Result Diagram: 08/30/18 0306 08/29/18 0558 Results 24hrs Laboratory Tests Test 08/30/18 14:28 08/31/18 10:18 Creatine Kinase 38 Creatine Kinase Index 1.6 Creatinine Kinase MB (Mass) 0.60 Troponin I < 0.012 Iron Level 19 L Total Iron Binding Capacity 310 Percent Iron Saturation 6 L Consultation Date/Type/Reason Admit Date/Time Aug 28, 2018 at 19:24 Initial Consult Date 08/30/18 Type of Consult Cardiology Requesting Provider: NURY DE LEON 24 HR Interval Summary Free Text/Dictation s/p EGD/colo but reports are not available. No complaints Exam/Review of Systems Vital Signs Vitals Vital Signs Date Temp Pulse Resp B/P (MAP) Pulse Ox O2 O2 Flow FiO2 Time Delivery Rate 08/31/18 98.1 59 18 105/55 97 11:02 (72) 08/30/18 Room Air 18:29 08/30/18 8.0 17:59 Intake and Output 08/30/18 08/30/18 08/31/18 1515:00 23:00 07:00 IntakeIntake Total 100 ml 850 ml OutputOutput Total 1400 ml BalanceBalance 100 ml -550 ml Exam Constitutional: alert, oriented Head: normocephalic, atraumatic Neck: supple; No jvd Respiratory: clear to auscultation; No crackles/rales Cardiovascular: regular rate and rhythm; No edema Gastrointestinal: soft, non-tender Neurological: nl mental status, nl speech Medications Medications Current Medications Ondansetron HCl (Zofran Inj) 4 mg Q6H PRN IV NAUSEA AND/OR VOMITING Last administered on 08/31/18 08:37; Admin Dose 4 MG; Start 08/28/18 at 20:30 Albuterol (Proventil 0.083% (Neb)) 2.5 mg Q2H RESP THERAPY PRN NEB SHORTNESS OF BREATH; Start 08/28/18 at 20:30 Ipratropium [place] (Atrovent 0.02% (Neb)) 0.5 mg Q2H RESP THERAPY PRN NEB SHORTNESS OF BREATH; Start 08/28/18 at 20:30 Acetaminophen (Tylenol Liquid) 650 mg Q6H PRN PO PAIN LEVEL 1-3 OR FEVER; Start 08/28/18 at 20:30 Levetiracetam 100 ml @ 400 mls/hr Q12 IVPB Last administered on 08/31/18 08:43; Admin Dose 400 MLS/HR; Start 08/28/18 at 21:00 Nitroglycerin (Nitroglycerin (Sl Tab) 0.4 Mg) 1 tab Q5M PRN SL ANGINA Last administered on 08/29/18 08:21; Admin Dose 1 TAB; Start 08/29/18 at 07:30 Clonazepam (Klonopin) 1 mg DAILY PRN PO ANXIETY Last administered on 08/29/18 11:51; Admin Dose 1 MG; Start 08/29/18 at 08:30 Trazodone HCl (Desyrel) 100 mg QHS PO Last administered on 08/29/18 20:31; Admin Dose 100 MG; Start 08/29/18 at 21:00 Atorvastatin Calcium (Lipitor) 20 mg QHS PO Last administered on 08/30/18at 20:48; Admin Dose 20 MG; Start 08/29/18 at 21:00 Docusate Sodium (Colace) 100 mg QHS PO Last administered on 08/29/18 20:31; Admin Dose 100 MG; Start 08/29/18 at 21:00 Fluoxetine HCl (Prozac) 80 mg DAILY PO Last administered on 08/31/18 08:38; Admin Dose 80 MG; Start 08/30/18 at 09:00 Gabapentin (Neurontin) 400 mg Q8H PO Last administered on 08/31/18 08:38; Admin Dose 400 MG; Start 08/29/18 at 17:00 Mirtazapine (Remeron) 15 mg HS PO Last administered on 08/30/18at 20:43; Admin Dose 15 MG; Start 08/29/18 at 21:00 Carvedilol (Coreg) 3.125 mg BID PO Last administered on 08/31/18at 08:38; Admin Dose 3.125 MG; Start 08/30/18 at 21:00 Sucralfate (Carafate Susp) 1 gm QID PO Last administered on 08/31/18at 08:38; Admin Dose 1 GM; Start 08/30/18 at 21:00 Metoclopramide HCl (Reglan) 10 mg Q8 PO ; Start 08/30/18 at 18:00 Morphine Sulfate (morphine SULFATE (PF)) 1 mg Q4H PRN IV SEVERE PAIN LEVEL 7-10 Last administered on 08/31/18at 08:50; Admin Dose 1 MG; Start 08/30/18 at 21:00 Pantoprazole (Protonix Tab) 40 mg DAILY@06 PO ; Start 09/01/18 at 06:00 Ranitidine HCl (Zantac) 150 mg HS PO ; Start 08/31/18 at 21:00 Ferric Sodium Gluconate Complex 125 mg/Sodium Chloride 100 ml @ 100 mls/hr DAILY@1300 IVPB ; Start 08/31/18 at 13:00; Stop 09/02/18 at 13:59 CHINA CODY Aug 31, 2018 11:52
--- NOTE | 2018-08-31 13:28 | PN ---
Date/Time of Note Date/Time of Note DATE: 08/31/18 TIME: 13:16 Assessment/Plan VTE Prophylaxis Risk score (from Ns)>0 risk: 3 SCD applied (from Ns): Yes Pharmacological prophylaxis: NA/contraindicated Pharm contraindication: bleeding Lines/Catheters IV Catheter Type (from Nrsg): Central Line Central line still needed: No Urinary Cath still in place: Yes Reason Cath still needed: other (indicate) (I and O) Assessment/Plan Assessment/Plan Assessment: Severe microcytic anemia S/P EGD/Colonoscopy 08/30/18 -Severe ulcerated Esophagitis -Small hiatal hernia -Moderate gastritis -Poor bowel prep -Internal hemorrhoids Odynophagia Hematemesis-resolved Hypertension Coronary artery disease Seizure disorder- on Keppra Chronic pain syndrome Marijuana user Plan: Continue Carafate and PPI GI cocktail x 1 Patient is refusing to repeat colonoscopy for now Repeat EGD in 8 weeks to assess for healing of ulceration Review pathology when available Monitor labs , transfuse for Hgb less than 7.5 Patient seen in collaboration with Dr. Schuler Subjective: Patient is c/o odynophagia and difficulty swallowing. He had one episode of vomiting after breakfast this morning. Tolerated lunch. Discussed results of EGD/Colonoscopy. Patient is agreeable to EGD in 8 weeks but refusing to repeat colonoscopy d/t difficulty with bowel prep. He may reconsider doing it as an outpatient. Hgb is trending up. No evidence of overt GI bleeding. PHYSICAL EXAMINATION: GENERAL: Alert & oriented x 3, in no acute distress. SKIN: No lesions EYES: Pupils equal reactive to light, no discharge. EARS/NOSE AND THROAT: Ears normal, nose normal, oropharynx candido NECK: Supple, no masses, thyroid normal CARDIOVASCULAR: Heart: Regular rate and rhythm RESPIRATORY: Lungs clear to auscultation GASTROINTESTINAL AND LIVER: Abdomen: Soft, epigastric tenderness, non-distended, no hernias, no masses, no organomegaly, no ascites, no guarding, no rebound tenderness, normoactive bowel sounds. Rectal: Deferred. EXTREMITIES: No cyanosis, clubbing or edema Result Diagram: 08/30/18 0306 08/29/18 0558 Results 24hrs Laboratory Tests Test 08/30/18 14:28 08/31/18 10:18 Creatine Kinase 38 Creatine Kinase Index 1.6 Creatinine Kinase MB (Mass) 0.60 Troponin I < 0.012 Iron Level 19 L Total Iron Binding Capacity 310 Percent Iron Saturation 6 L CC: KERLINE SCHULER MD ; Exam/Review of Systems Vital Signs Vitals Vital Signs Date Temp Pulse Resp B/P (MAP) Pulse Ox O2 O2 Flow FiO2 Time Delivery Rate 08/31/18 98.1 59 18 105/55 97 11:02 (72) 08/30/18 Room Air 18:29 08/30/18 8.0 17:59 Intake and Output 08/30/18 08/30/18 08/31/18 1515:00 23:00 07:00 IntakeIntake Total 100 ml 850 ml OutputOutput Total 1400 ml BalanceBalance 100 ml -550 ml Medications Medications Current Medications Ondansetron HCl (Zofran Inj) 4 mg Q6H PRN IV NAUSEA AND/OR VOMITING Last administered on 08/31/18at 08:37; Admin Dose 4 MG; Start 08/28/18 at 20:30 Albuterol (Proventil 0.083% (Neb)) 2.5 mg Q2H RESP THERAPY PRN NEB SHORTNESS OF BREATH; Start 08/28/18 at 20:30 Ipratropium [place] (Atrovent 0.02% (Neb)) 0.5 mg Q2H RESP THERAPY PRN NEB SHORTNESS OF BREATH; Start 08/28/18 at 20:30 Acetaminophen (Tylenol Liquid) 650 mg Q6H PRN PO PAIN LEVEL 1-3 OR FEVER; Start 08/28/18 at 20:30 Levetiracetam 100 ml @ 400 mls/hr Q12 IVPB Last administered on 08/31/18at 08:43; Admin Dose 400 MLS/HR; Start 08/28/18 at 21:00 Nitroglycerin (Nitroglycerin (Sl Tab) 0.4 Mg) 1 tab Q5M PRN SL ANGINA Last administered on 08/29/18 08:21; Admin Dose 1 TAB; Start 08/29/18 at 07:30 Clonazepam (Klonopin) 1 mg DAILY PRN PO ANXIETY Last administered on 08/29/18 11:51; Admin Dose 1 MG; Start 08/29/18 at 08:30 Trazodone HCl (Desyrel) 100 mg QHS PO Last administered on 08/29/18 20:31; Admin Dose 100 MG; Start 08/29/18 at 21:00 Atorvastatin Calcium (Lipitor) 20 mg QHS PO Last administered on 08/30/18at 20:48; Admin Dose 20 MG; Start 08/29/18 at 21:00 Docusate Sodium (Colace) 100 mg QHS PO Last administered on 08/29/18at 20:31; Admin Dose 100 MG; Start 08/29/18 at 21:00 Fluoxetine HCl (Prozac) 80 mg DAILY PO Last administered on 08/31/18 08:38; Admin Dose 80 MG; Start 08/30/18 at 09:00 Gabapentin (Neurontin) 400 mg Q8H PO Last administered on 08/31/18 08:38; Admin Dose 400 MG; Start 08/29/18 at 17:00 Mirtazapine (Remeron) 15 mg HS PO Last administered on 08/30/18at 20:43; Admin Dose 15 MG; Start 08/29/18 at 21:00 Carvedilol (Coreg) 3.125 mg BID PO Last administered on 08/31/18 08:38; Admin Dose 3.125 MG; Start 08/30/18 at 21:00 Sucralfate (Carafate Susp) 1 gm QID PO Last administered on 08/31/18 12:18; Admin Dose 1 GM; Start 08/30/18 at 21:00 Metoclopramide HCl (Reglan) 10 mg Q8 PO ; Start 08/30/18 at 18:00 Morphine Sulfate (morphine SULFATE (PF)) 1 mg Q4H PRN IV SEVERE PAIN LEVEL 7-10 Last administered on 08/31/18at 08:50; Admin Dose 1 MG; Start 08/30/18 at 21:00 Pantoprazole (Protonix Tab) 40 mg DAILY@06 PO ; Start 09/01/18 at 06:00 Ranitidine HCl (Zantac) 150 mg HS PO ; Start 08/31/18 at 21:00 Ferric Sodium Gluconate Complex 125 mg/Sodium Chloride 100 ml @ 100 mls/hr DAILY@1300 IVPB ; Start 08/31/18 at 13:00; Stop 09/02/18 at 13:59 JOVANNI HICKS NP Aug 31, 2018 13:26
[2018-08-31] MEDS: SOD FERRIC GLUC COMPLX 125 MG in SOD CHLORIDE 0.9% 100 ML IVPB SCH (13:40)
[2018-08-31] MEDS ORDERED: LIDOCAINE/MYLANTA 40 ML BTL PO ONE (14:30)
[2018-08-31] MEDS: DOCUSATE SODIUM 100 MG CAP PO SCH (20:43)
[2018-08-31] MEDS: traZODone 100 MG TAB PO SCH (20:45)
[2018-08-31] MEDS: ATORVASTATIN 20 MG TAB PO SCH (20:46)
[2018-08-31] MEDS: MIRTAZAPINE 15 MG TAB PO SCH (20:47)
[2018-08-31] MEDS: RANITIDINE 150 MG TAB PO SCH (20:47)
[2018-09-01] VITALS (12 sets, daily range): BP systolic 112–137; BP diastolic 59–72; PULSE 61–79; RESP 18
[2018-09-01] MEDS: GABAPENTIN 400 MG CAP PO SCH ×3 (00:08→16:30)
[2018-09-01] MEDS: METOCLOPRAMIDE 10 MG TAB PO SCH ×3 (05:22→21:00)
[2018-09-01] MEDS: PANTOPRAZOLE (EC) 40 MG TAB PO SCH (05:22)
--- NOTE | 2018-09-01 07:10 | CONS ---
Date/Time of Note Date/Time of Note DATE: 09/01/18 TIME: 07:09 Assessment/Plan Assessment/Plan Hospital Course Chest pain: Very atypical, upper right chest wall. No EKG changes and negative troponins. No current symptoms. Noncardiac and no further workup is necessary Severe anemia: Hgb 2.9 on admission. s/p 5 units. No active bleeding. s/p EGD with severe erosive esophagitis CAD s/p PCI 2 yrs ago ?Cardiomyopathy: EF normal 07/07 COPD/ILD -resume ASA without plavix as soon as safe from GI perspective -coreg 3.125mg BID -continue lipitor -otherwise ok for d/c from my perspective Result Diagram: 08/30/18 0306 08/29/18 0558 Results 24hrs Laboratory Tests Test 08/31/18 10:18 Iron Level 19 L Total Iron Binding Capacity 310 Percent Iron Saturation 6 L Consultation Date/Type/Reason Admit Date/Time Aug 28, 2018 at 19:24 Initial Consult Date 08/30/18 Type of Consult Cardiology Requesting Provider: NURY DE LEON 24 HR Interval Summary Free Text/Dictation No events. EGD showed severe erosive esophagitis Exam/Review of Systems Vital Signs Vitals Vital Signs Date Temp Pulse Resp B/P (MAP) Pulse Ox O2 O2 Flow FiO2 Time Delivery Rate 09/01/18 61 04:00 09/01/18 98.4 18 115/62 95 03:24 (79) 08/30/18 Room Air 18:29 08/30/18 8.0 17:59 Intake and Output 08/31/18 08/31/18 09/01/18 1414:59 22:59 06:59 IntakeIntake Total 195 ml 700 ml 400 ml OutputOutput Total 200 ml 1100 ml BalanceBalance 195 ml 500 ml -700 ml Exam Constitutional: No alert (sleeping ) Head: normocephalic, atraumatic Neck: supple; No jvd Respiratory: clear to auscultation; No crackles/rales Cardiovascular: regular rate and rhythm; No edema Gastrointestinal: soft, non-tender Medications Medications Current Medications Ondansetron HCl (Zofran Inj) 4 mg Q6H PRN IV NAUSEA AND/OR VOMITING Last administered on 08/31/18at 08:37; Admin Dose 4 MG; Start 08/28/18 at 20:30 Albuterol (Proventil 0.083% (Neb)) 2.5 mg Q2H RESP THERAPY PRN NEB SHORTNESS OF BREATH; Start 08/28/18 at 20:30 Ipratropium [place] (Atrovent 0.02% (Neb)) 0.5 mg Q2H RESP THERAPY PRN NEB SHORTNESS OF BREATH; Start 08/28/18 at 20:30 Acetaminophen (Tylenol Liquid) 650 mg Q6H PRN PO PAIN LEVEL 1-3 OR FEVER; Start 08/28/18 at 20:30 Levetiracetam 100 ml @ 400 mls/hr Q12 IVPB Last administered on 08/31/18 20:44; Admin Dose 400 MLS/HR; Start 08/28/18 at 21:00 Nitroglycerin (Nitroglycerin (Sl Tab) 0.4 Mg) 1 tab Q5M PRN SL ANGINA Last administered on 08/29/18 08:21; Admin Dose 1 TAB; Start 08/29/18 at 07:30 Clonazepam (Klonopin) 1 mg DAILY PRN PO ANXIETY Last administered on 08/29/18 11:51; Admin Dose 1 MG; Start 08/29/18 at 08:30 Trazodone HCl (Desyrel) 100 mg QHS PO Last administered on 08/29/18 20:31; Admin Dose 100 MG; Start 08/29/18 at 21:00 Atorvastatin Calcium (Lipitor) 20 mg QHS PO Last administered on 08/31/18 20:46; Admin Dose 20 MG; Start 08/29/18 at 21:00 Docusate Sodium (Colace) 100 mg QHS PO Last administered on 08/29/18 20:31; Admin Dose 100 MG; Start 08/29/18 at 21:00 Fluoxetine HCl (Prozac) 80 mg DAILY PO Last administered on 08/31/18 08:38; Admin Dose 80 MG; Start 08/30/18 at 09:00 Gabapentin (Neurontin) 400 mg Q8H PO Last administered on 09/01/18 00:08; Admin Dose 400 MG; Start 08/29/18 at 17:00 Mirtazapine (Remeron) 15 mg HS PO Last administered on 08/31/18 20:47; Admin Dose 15 MG; Start 08/29/18 at 21:00 Carvedilol (Coreg) 3.125 mg BID PO Last administered on 08/31/18 20:45; Admin Dose 3.125 MG; Start 08/30/18 at 21:00 Sucralfate (Carafate Susp) 1 gm QID PO Last administered on 08/31/18 20:44; Admin Dose 1 GM; Start 08/30/18 at 21:00 Metoclopramide HCl (Reglan) 10 mg Q8 PO Last administered on 09/01/18 05:22; Admin Dose 10 MG; Start 08/30/18 at 18:00 Morphine Sulfate (morphine SULFATE (PF)) 1 mg Q4H PRN IV SEVERE PAIN LEVEL 7-10 Last administered on 08/31/18 21:36; Admin Dose 1 MG; Start 08/30/18 at 21:00 Pantoprazole (Protonix Tab) 40 mg DAILY@06 PO Last administered on 09/01/18 05:22; Admin Dose 40 MG; Start 09/01/18 at 06:00 Ranitidine HCl (Zantac) 150 mg HS PO Last administered on 08/31/18 20:47; Admin Dose 150 MG; Start 08/31/18 at 21:00 Ferric Sodium Gluconate Complex 125 mg/Sodium Chloride 100 ml @ 100 mls/hr DAILY@1300 IVPB Last administered on 08/31/18 13:40; Admin Dose 100 MLS/HR; Start 08/31/18 at 13:00; Stop 09/02/18 at 13:59 CHINA CODY Sep 01, 2018 07:10
[2018-09-01] MEDS: SUCRALFATE (100 MG/ML) 10ML CUP PO SCH ×4 (08:25→20:56)
[2018-09-01] MEDS: LEVETIRACETAM 1000 MG (PMX) 100 ML IVPB SCH ×2 (08:25→20:54)
[2018-09-01] MEDS: FLUOXETINE 20 MG CAP PO SCH (08:26)
--- NOTE | 2018-09-01 09:47 | PN ---
Date/Time of Note Date/Time of Note DATE: 09/01/18 TIME: 09:44 Assessment/Plan VTE Prophylaxis Risk score (from Ns)>0 risk: 8 SCD applied (from Ns): Yes Pharmacological prophylaxis: heparin Lines/Catheters IV [facility]from [facility] Central Line Central line still needed: Yes Urinary Cath still in place: No Assessment/Plan Problems: (1) Esophagitis determined by endoscopy Status: Chronic Comment: Stabilizing nicely without any evidence of recurrent bleeding. The patient's now starting to take p.o. I have reviewed with him again that he will need follow-up endoscopy in 8 weeks. When put expiration dates on some of those medications. The goal will be 4 weeks of sucralfate 2 months of nighttime ranitidine and 3 months of oral pantoprazole in the morning. In addition he is can elevate the head of his bed at his assisted living facility. (2) Severe anemia Status: Acute Comment: Resolving nicely. Please note he is receiving intravenous iron (3) Hyperlipidemia Status: Chronic Comment: Noted. Qualifiers: Hyperlipidemia type: pure hypercholesterolemia Qualified Codes: E78.00 - Pure hypercholesterolemia, unspecified (4) Grade I diastolic dysfunction Status: Chronic Comment: Noted and not an active medical problem at this time (5) Accelerated hypertension Status: Chronic Comment: Adequate control. (6) Hx of seizure disorder Status: Chronic Comment: Antiepileptic drug therapy without seizures Result Diagram: 08/30/18 0306 08/29/18 0558 Results 24hrs Laboratory Tests Test 08/31/18 10:18 Iron Level 19 L Total Iron Binding Capacity 310 Percent Iron Saturation 6 L Subjective 24 Hr Interval Summary Free Text/Dictation Patient reports he feels much better this morning. He is starting to take orally without major inconvenience Constitutional: no complaints Respiratory: no complaints Cardiovascular: no complaints Gastrointestinal: no complaints Exam/Review of Systems Vital Signs Vitals Vital Signs Date Temp Pulse Resp B/P (MAP) Pulse Ox O2 O2 Flow FiO2 Time Delivery Rate 09/01/18 74 08:01 09/01/18 98.4 18 118/61 96 Room Air 07:37 (80) 08/30/18 8.0 17:59 Intake and Output 08/31/18 08/31/18 09/01/18 1515:00 23:00 07:00 IntakeIntake Total 145 ml 700 ml 400 ml OutputOutput Total 200 ml 1100 ml BalanceBalance 145 ml 500 ml -700 ml Exam Constitutional: alert, oriented Neck: supple, non-tender Respiratory: clear to auscultation, normal air movement Cardiovascular: regular rate and rhythm, nl pulses Medications Medications Current Medications Ondansetron HCl (Zofran Inj) 4 mg Q6H PRN IV NAUSEA AND/OR VOMITING Last administered on 08/31/18 08:37; Admin Dose 4 MG; Start 08/28/18 at 20:30 Albuterol (Proventil 0.083% (Neb)) 2.5 mg Q2H RESP THERAPY PRN NEB SHORTNESS OF BREATH; Start 08/28/18 at 20:30 Ipratropium [place] (Atrovent 0.02% (Neb)) 0.5 mg Q2H RESP THERAPY PRN NEB SHORTNESS OF BREATH; Start 08/28/18 at 20:30 Acetaminophen (Tylenol Liquid) 650 mg Q6H PRN PO PAIN LEVEL 1-3 OR FEVER; Start 08/28/18 at 20:30 Levetiracetam 100 ml @ 400 mls/hr Q12 IVPB Last administered on 09/01/18 08:25; Admin Dose 400 MLS/HR; Start 08/28/18 at 21:00 Nitroglycerin (Nitroglycerin (Sl Tab) 0.4 Mg) 1 tab Q5M PRN SL ANGINA Last administered on 08/29/18 08:21; Admin Dose 1 TAB; Start 08/29/18 at 07:30 Clonazepam (Klonopin) 1 mg DAILY PRN PO ANXIETY Last administered on 08/29/18 11:51; Admin Dose 1 MG; Start 08/29/18 at 08:30 Trazodone HCl (Desyrel) 100 mg QHS PO Last administered on 08/29/18 20:31; Admin Dose 100 MG; Start 08/29/18 at 21:00 Atorvastatin Calcium (Lipitor) 20 mg QHS PO Last administered on 08/31/18 20:46; Admin Dose 20 MG; Start 08/29/18 at 21:00 Docusate Sodium (Colace) 100 mg QHS PO Last administered on 08/29/18 20:31; Admin Dose 100 MG; Start 08/29/18 at 21:00 Fluoxetine HCl (Prozac) 80 mg DAILY PO Last administered on 09/01/18 08:26; Admin Dose 80 MG; Start 08/30/18 at 09:00 Gabapentin (Neurontin) 400 mg Q8H PO Last administered on 09/01/18 08:25; Admin Dose 400 MG; Start 08/29/18 at 17:00 Mirtazapine (Remeron) 15 mg HS PO Last administered on 08/31/18 20:47; Admin Dose 15 MG; Start 08/29/18 at 21:00 Carvedilol (Coreg) 3.125 mg BID PO Last administered on 09/01/18 08:26; Admin Dose 3.125 MG; Start 08/30/18 at 21:00 Sucralfate (Carafate Susp) 1 gm QID PO Last administered on 09/01/18 08:25; Ad min Dose 1 GM; Start 08/30/18 at 21:00 Metoclopramide HCl (Reglan) 10 mg Q8 PO Last administered on 09/01/18 05:22; Admin Dose 10 MG; Start 08/30/18 at 18:00 Morphine Sulfate (morphine SULFATE (PF)) 1 mg Q4H PRN IV SEVERE PAIN LEVEL 7-10 Last administered on 08/31/18 21:36; Admin Dose 1 MG; Start 08/30/18 at 21:00 Pantoprazole (Protonix Tab) 40 mg DAILY@06 PO Last administered on 09/01/18 05 :22; Admin Dose 40 MG; Start 09/01/18 at 06:00 Ranitidine HCl (Zantac) 150 mg HS PO Last administered on 08/31/18 20:47; Admin Dose 150 MG; Start 08/31/18 at 21:00 Ferric Sodium Gluconate Complex 125 mg/Sodium Chloride 100 ml @ 100 mls/hr DAILY@1300 IVPB Last administered on 08/31/18 13:40; Admin Dose 100 MLS/HR; Start 08/31/18 at 13:00; Stop 09/02/18 at 13:59 DANIAL DONATO MD Sep 01, 2018 09:47
[2018-09-01] MEDS: clonAZEPAM 0.5 MG TAB PO PRN (10:08)
[2018-09-01] MEDS: SOD FERRIC GLUC COMPLX 125 MG in SOD CHLORIDE 0.9% 100 ML IVPB SCH (13:00)
--- NOTE | 2018-09-01 13:42 | PN ---
Date/Time of Note Date/Time of Note DATE: 09/01/18 TIME: 13:31 Assessment/Plan VTE Prophylaxis Risk score (from Ns)>0 risk: 8 SCD applied (from Ns): Yes Pharmacological prophylaxis: NA/contraindicated Pharm contraindication: bleeding Lines/Catheters IV Catheter Type (from Nrsg): Central Line Central line still needed: No Urinary Cath still in place: No Assessment/Plan Assessment/Plan Assessment: Severe microcytic anemia S/P EGD/Colonoscopy 08/30/18 -Severe ulcerated Esophagitis -Small hiatal hernia -Moderate gastritis -Poor bowel prep -Internal hemorrhoids Odynophagia Hematemesis-resolved Hypertension Coronary artery disease Seizure disorder- on Keppra Chronic pain syndrome Marijuana user Plan: Continue Carafate and PPI Recommend PPI BID x 2 months Patient is refusing to repeat colonoscopy for now Repeat EGD in 8 weeks to assess for healing of ulceration Review pathology when available Monitor labs , transfuse for Hgb less than 7.5 Patient seen in collaboration with Dr. Schuler Subjective: Patient is feeling better, denies pain with swallowing, nausea, vomiting or abdominal pain. Patient is agreeable to EGD in 8 weeks but refusing to repeat colonoscopy d/t difficulty with bowel prep. He may reconsider doing it as an outpatient. Hgb is trending up. No evidence of overt GI bleeding. From GI stand point patient is adequate for outpatient management. PHYSICAL EXAMINATION: GENERAL: Alert & oriented x 3, in no acute distress. SKIN: No lesions EYES: Pupils equal reactive to light, no discharge. EARS/NOSE AND THROAT: Ears normal, nose normal, oropharynx candido NECK: Supple, no masses, thyroid normal CARDIOVASCULAR: Heart: Regular rate and rhythm RESPIRATORY: Lungs clear to auscultation GASTROINTESTINAL AND LIVER: Abdomen: Soft, epigastric tenderness, non-distended, no hernias, no masses, no organomegaly, no ascites, no guarding, no rebound tenderness, normoactive bowel sounds. Rectal: Deferred. EXTREMITIES: No cyanosis, clubbing or edema Result Diagram: 08/30/18 0306 08/29/18 0558 CC: KERLINE SCHULER MD ; Exam/Review of Systems Vital Signs Vitals Vital Signs Date Temp Pulse Resp B/P (MAP) Pulse Ox O2 O2 Flow FiO2 Time Delivery Rate 09/01/18 78 12:01 09/01/18 97.8 18 121/72 96 Room Air 11:45 (88) 08/30/18 8.0 17:59 Intake and Output 08/31/18 08/31/18 09/01/18 1515:00 23:00 07:00 IntakeIntake Total 145 ml 700 ml 400 ml OutputOutput Total 200 ml 1100 ml BalanceBalance 145 ml 500 ml -700 ml Medications Medications Current Medications Ondansetron HCl (Zofran Inj) 4 mg Q6H PRN IV NAUSEA AND/OR VOMITING Last administered on 08/31/18 08:37; Admin Dose 4 MG; Start 08/28/18 at 20:30 Albuterol (Proventil 0.083% (Neb)) 2.5 mg Q2H RESP THERAPY PRN NEB SHORTNESS OF BREATH; Start 08/28/18 at 20:30 Ipratropium [place] (Atrovent 0.02% (Neb)) 0.5 mg Q2H RESP THERAPY PRN NEB SHORTNESS OF BREATH; Start 08/28/18 at 20:30 Acetaminophen (Tylenol Liquid) 650 mg Q6H PRN PO PAIN LEVEL 1-3 OR FEVER; Start 08/28/18 at 20:30 Levetiracetam 100 ml @ 400 mls/hr Q12 IVPB Last administered on 09/01/18 08:25; Admin Dose 400 MLS/HR; Start 08/28/18 at 21:00 Nitroglycerin (Nitroglycerin (Sl Tab) 0.4 Mg) 1 tab Q5M PRN SL ANGINA Last administered on 08/29/18 08:21; Admin Dose 1 TAB; Start 08/29/18 at 07:30 Clonazepam (Klonopin) 1 mg DAILY PRN PO ANXIETY Last administered on 09/01/18 10:08; Admin Dose 1 MG; Start 08/29/18 at 08:30 Trazodone HCl (Desyrel) 100 mg QHS PO Last administered on 08/29/18 20:31; Admin Dose 100 MG; Start 08/29/18 at 21:00 Atorvastatin Calcium (Lipitor) 20 mg QHS PO Last administered on 08/31/18 20:46; Admin Dose 20 MG; Start 08/29/18 at 21:00 Docusate Sodium (Colace) 100 mg QHS PO Last administered on 1/10/19at 20:31; Admin Dose 100 MG; Start 08/29/18 at 21:00 Fluoxetine HCl (Prozac) 80 mg DAILY PO Last administered on 09/01/18 08:26; Admin Dose 80 MG; Start 08/30/18 at 09:00 Gabapentin (Neurontin) 400 mg Q8H PO Last administered on 09/01/18 08:25; Admin Dose 400 MG; Start 08/29/18 at 17:00 Mirtazapine (Remeron) 15 mg HS PO Last administered on 08/31/18 20:47; Admin D ose 15 MG; Start 08/29/18 at 21:00 Carvedilol (Coreg) 3.125 mg BID PO Last administered on 09/01/18 08:26; Admin Dose 3.125 MG; Start 08/30/18 at 21:00 Sucralfate (Carafate Susp) 1 gm QID PO Last administered on 09/01/18 13:04; Admin Dose 1 GM; Start 08/30/18 at 21:00; Stop 09/27/18 at 20:59 Metoclopramide HCl (Reglan) 10 mg Q8 PO Last administered on 09/01/18 13:04; Admin Dose 10 MG; Start 08/30/18 at 18:00 Morphine Sulfate (morphine SULFATE (PF)) 1 mg Q4H PRN IV SEVERE PAIN LEVEL 7-10 Last administered on 08/31/18 21:36; Admin Dose 1 MG; Start 08/30/18 at 21:00 Pantoprazole (Protonix Tab) 40 mg DAILY@06 PO Last administered on 09/01/18 05:22; Admin Dose 40 MG; Start 09/01/18 at 06:00; Stop 11/30/18 at 05:59 Ranitidine HCl (Zantac) 150 mg HS PO Last administered on 08/31/18 20:47; Admin Dose 150 MG; Start 08/31/18 at 21:00; Stop 10/30/18 at 20:59 Ferric Sodium Gluconate Complex 125 mg/Sodium Chloride 100 ml @ 100 mls/hr DAILY@1300 IVPB Last administered on 08/31/18 13:40; Admin Dose 100 MLS/HR; Start 08/31/18 at 13:00; Stop 1/14/19 at 13:59 JOVANNI HICKS NP Sep 01, 2018 13:42
[2018-09-01] MEDS ORDERED: LOPERAMIDE HCL 1 MG/5 ML LIQUID (10 ML UD CUP) PO PRN (14:00)
[2018-09-01] MEDS: DOCUSATE SODIUM 100 MG CAP PO SCH (20:56)
[2018-09-01] MEDS: MIRTAZAPINE 15 MG TAB PO SCH (20:57)
[2018-09-01] MEDS: RANITIDINE 150 MG TAB PO SCH (20:57)
[2018-09-01] MEDS: ATORVASTATIN 20 MG TAB PO SCH (20:57)
[2018-09-01] MEDS: traZODone 100 MG TAB PO SCH (20:57)
[2018-09-01] MEDS ORDERED: LORAZEPAM 0.5 MG TAB PO ONE (21:00)
[2018-09-02] VITALS: PULSE 78
[2018-09-02] MEDS: GABAPENTIN 400 MG CAP PO SCH ×2 (00:19→08:22)
[2018-09-02] MEDS: clonAZEPAM 0.5 MG TAB PO PRN (00:19)
[2018-09-02 03:54] VITALS: BP 135/65; PULSE 72; RESP 18
[2018-09-02 04:00] VITALS: PULSE 67
[2018-09-02] MEDS: METOCLOPRAMIDE 10 MG TAB PO SCH (06:00)
[2018-09-02] MEDS: PANTOPRAZOLE (EC) 40 MG TAB PO SCH (06:16)
[2018-09-02] MEDS ORDERED: DIPHENOXYLATE/ATROPINE TAB PO PRN (06:30)
[2018-09-02 07:18] VITALS: BP 148/76; PULSE 64; RESP 18
[2018-09-02 08:01] VITALS: PULSE 73
[2018-09-02] MEDS: FLUOXETINE 20 MG CAP PO SCH (08:21)
[2018-09-02] MEDS: SUCRALFATE (100 MG/ML) 10ML CUP PO SCH ×2 (08:21→13:00)
[2018-09-02] MEDS: LEVETIRACETAM 1000 MG (PMX) 100 ML IVPB SCH (08:24)
[2018-09-02 12:01] VITALS: PULSE 86
--- NOTE | 2018-09-02 12:29 | PN ---
Date/Time of Note Date/Time of Note DATE: 09/02/18 TIME: 12:28 Assessment/Plan VTE Prophylaxis Risk score (from Nsg)>0 risk: 6 SCD applied (from Ns): Yes Pharmacological prophylaxis: other (scds) Lines/Catheters IV Catheter Type (from Nrsg): Central Line Central line still needed: Yes (meds) Urinary Cath still in place: No Assessment/Plan Hospital Course Assessment/Plan Assessment: Severe microcytic anemia S/P EGD/Colonoscopy 08/30/18 -Severe ulcerated Esophagitis -Small hiatal hernia -Moderate gastritis -Poor bowel prep -Internal hemorrhoids Odynophagia Hematemesis-resolved Hypertension Coronary artery disease Seizure disorder- on Keppra Chronic pain syndrome Marijuana user Plan: Continue Carafate and PPI BID x 2 months Patient is refusing repeat colonoscopy for now Consider restarting anti-plt - monitor over night for over signs of GI bleed. Repeat EGD in 8 weeks to assess for healing of ulceration Review pathology when available Monitor labs , transfuse for Hgb less than 7.5 Patient seen in collaboration with Dr. Schuler/Zahra Subjective: Pt seems agitated stating he want sot leave AMA. Does not participate in questions asked. No over night events. no over signs of GI bleed. HGB stable. PHYSICAL EXAMINATION: Patient refused Result Diagram: 08/30/18 0306 08/29/18 0558 Exam/Review of Systems Vital Signs Vitals Vital Signs Date Temp Pulse Resp B/P (MAP) Pulse Ox O2 O2 Flow FiO2 Time Delivery Rate 09/02/18 86 12:01 09/02/18 97.8 18 148/76 95 07:18 (100) 09/02/18 Room Air 03:54 08/30/18 8.0 17:59 Intake and Output 09/01/18 09/01/18 09/02/18 1515:00 23:00 07:00 IntakeIntake Total 1100 ml OutputOutput Total 600 ml BalanceBalance 500 ml Medications Medications Current Medications Ondansetron HCl (Zofran Inj) 4 mg Q6H PRN IV NAUSEA AND/OR VOMITING Last administered on 08/31/18at 08:37; Admin Dose 4 MG; Start 08/28/18 at 20:30 Albuterol (Proventil 0.083% (Neb)) 2.5 mg Q2H RESP THERAPY PRN NEB SHORTNESS OF BREATH; Start 08/28/18 at 20:30 Ipratropium [place] (Atrovent 0.02% (Neb)) 0.5 mg Q2H RESP THERAPY PRN NEB SHORTNESS OF BREATH; Start 08/28/18 at 20:30 Acetaminophen (Tylenol Liquid) 650 mg Q6H PRN PO PAIN LEVEL 1-3 OR FEVER; Start 08/28/18 at 20:30 Levetiracetam 100 ml @ 400 mls/hr Q12 IVPB Last administered on 09/02/18 08:24; Admin Dose 400 MLS/HR; Start 08/28/18 at 21:00 Nitroglycerin (Nitroglycerin (Sl Tab) 0.4 Mg) 1 tab Q5M PRN SL ANGINA Last administered on 08/29/18 08:21; Admin Dose 1 TAB; Start 08/29/18 at 07:30 Clonazepam (Klonopin) 1 mg DAILY PRN PO ANXIETY Last administered on 09/02/18 00:19; Admin Dose 1 MG; Start 08/29/18 at 08:30 Trazodone HCl (Desyrel) 100 mg QHS PO Last administered on 08/29/18 20:31; A dmin Dose 100 MG; Start 08/29/18 at 21:00 Atorvastatin Calcium (Lipitor) 20 mg QHS PO Last administered on 09/01/18 20:57; Admin Dose 20 MG; Start 08/29/18 at 21:00 Docusate Sodium (Colace) 100 mg QHS PO Last administered on 08/29/18 20:31; Admin Dose 100 MG; Start 08/29/18 at 21:00 Fluoxetine HCl (Prozac) 80 mg DAILY PO Last administered on 09/02/18 08:21; Admin Dose 80 MG; Start 08/30/18 at 09:00 Gabapentin (Neurontin) 400 mg Q8H PO Last administered on 09/02/18 08:22; Admin Dose 400 MG; Start 08/29/18 at 17:00 Mirtazapine (Remeron) 15 mg HS PO Last administered on 09/01/18 20:57; Admin Dose 15 MG; Start 08/29/18 at 21:00 Carvedilol (Coreg) 3.125 mg BID PO Last administered on 09/02/18 08:22; Admin Dose 3.125 MG; Start 08/30/18 at 21:00 Sucralfate (Carafate Susp) 1 gm QID PO Last administered on 09/02/18 08:21; Admin Dose 1 GM; Start 08/30/18 at 21:00; Stop 09/27/18 at 20:59 Metoclopramide HCl (Reglan) 10 mg Q8 PO Last administered on 09/01/18 21:00; Admin Dose 10 MG; Start 08/30/18 at 18:00 Morphine Sulfate (morphine SULFATE (PF)) 1 mg Q4H PRN IV SEVERE PAIN LEVEL 7-10 Last administered on 08/31/18 21:36; Admin Dose 1 MG; Start 08/30/18 at 21:00 Pantoprazole (Protonix Tab) 40 mg DAILY@06 PO Last administered on 09/02/18 06:16; Admin Dose 40 MG; Start 09/01/18 at 06:00; Stop 11/30/18 at 05:59 Ranitidine HCl (Zantac) 150 mg HS PO Last administered on 09/01/18 20:57; Admin Dose 150 MG; Start 08/31/18 at 21:00; Stop 10/30/18 at 20:59 Ferric Sodium Gluconate Complex 125 mg/Sodium Chloride 100 ml @ 100 mls/hr DAILY@1300 IVPB Last administered on 09/01/18 13:00; Admin Dose 100 MLS/HR; Start 08/31/18 at 13:00; Stop 09/02/18 at 13:59 Loperamide HCl (Imodium) 2 mg QID PRN PO DIARRHEA Last administered on 09/01/18 14:58; Admin Dose 2 MG; Start 09/01/18 at 14:00 Diphenoxylate HCl/ Atropine (Lomotil) 2 tab Q6H PRN PO DIARRHEA Last administered on 09/02/18 08:36; Admin Dose 2 TAB; Start 09/02/18 at 06:30 [place] Sep 02, 2018 12:29
--- NOTE | 2018-09-02 12:56 | CONS ---
Date/Time of Note Date/Time of Note DATE: 09/02/18 TIME: 12:55 Assessment/Plan Assessment/Plan Hospital Course Chest pain: Very atypical, upper right chest wall. No EKG changes and negative troponins. No current symptoms. Noncardiac and no further workup is necessary Severe anemia: Hgb 2.9 on admission. s/p 5 units. No active bleeding. s/p EGD with severe erosive esophagitis CAD s/p PCI 2 yrs ago ?Cardiomyopathy: EF normal 07/07 COPD/ILD -resume ASA without plavix as soon as safe from GI perspective -coreg 3.125mg BID -continue lipitor -otherwise ok for d/c from my perspective Result Diagram: 08/30/18 0306 08/29/18 0558 Consultation Date/Type/Reason Admit Date/Time Aug 28, 2018 at 19:24 Initial Consult Date 08/30/18 Type of Consult Cardiology Requesting Provider: NURY DE LEON 24 HR Interval Summary Free Text/Dictation Very upset about still being in the hospital. Threatening to jeannie as he is "being held captive" No bleeding. Hgb stable Exam/Review of Systems Vital Signs Vitals Vital Signs Date Temp Pulse Resp B/P (MAP) Pulse Ox O2 O2 Flow FiO2 Time Delivery Rate 09/02/18 86 12:01 09/02/18 97.8 18 148/76 95 07:18 (100) 09/02/18 Room Air 03:54 08/30/18 8.0 17:59 Intake and Output 09/01/18 09/01/18 09/02/18 1414:59 22:59 06:59 IntakeIntake Total 1100 ml OutputOutput Total 600 ml BalanceBalance 500 ml Exam Constitutional: alert, oriented Psych: no complaints, nl mood/affect Neck: supple; No jvd Respiratory: clear to auscultation; No crackles/rales Cardiovascular: regular rate and rhythm; No edema Gastrointestinal: soft, non-tender Medications Medications Current Medications Ondansetron HCl (Zofran Inj) 4 mg Q6H PRN IV NAUSEA AND/OR VOMITING Last administered on 08/31/18at 08:37; Admin Dose 4 MG; Start 08/28/18 at 20:30 Albuterol (Proventil 0.083% (Neb)) 2.5 mg Q2H RESP THERAPY PRN NEB SHORTNESS OF BREATH; Start 08/28/18 at 20:30 Ipratropium [place] (Atrovent 0.02% (Neb)) 0.5 mg Q2H RESP THERAPY PRN NEB SHORTNESS OF BREATH; Start 08/28/18 at 20:30 Acetaminophen (Tylenol Liquid) 650 mg Q6H PRN PO PAIN LEVEL 1-3 OR FEVER; Start 08/28/18 at 20:30 Levetiracetam 100 ml @ 400 mls/hr Q12 IVPB Last administered on 09/02/18 08:24; Admin Dose 400 MLS/HR; Start 08/28/18 at 21:00 Nitroglycerin (Nitroglycerin (Sl Tab) 0.4 Mg) 1 tab Q5M PRN SL ANGINA Last administered on 08/29/18 08:21; Admin Dose 1 TAB; Start 08/29/18 at 07:30 Clonazepam (Klonopin) 1 mg DAILY PRN PO ANXIETY Last administered on 09/02/18 00:19; Admin Dose 1 MG; Start 08/29/18 at 08:30 Trazodone HCl (Desyrel) 100 mg QHS PO Last administered on 08/29/18 20:31; Adm in Dose 100 MG; Start 08/29/18 at 21:00 Atorvastatin Calcium (Lipitor) 20 mg QHS PO Last administered on 09/01/18 20:57; Admin Dose 20 MG; Start 08/29/18 at 21:00 Docusate Sodium (Colace) 100 mg QHS PO Last administered on 08/29/18 20:31; Admin Dose 100 MG; Start 08/29/18 at 21:00 Fluoxetine HCl (Prozac) 80 mg DAILY PO Last administered on 09/02/18 08:21; Admin Dose 80 MG; Start 08/30/18 at 09:00 Gabapentin (Neurontin) 400 mg Q8H PO Last administered on 09/02/18 08:22; Admin Dose 400 MG; Start 08/29/18 at 17:00 Mirtazapine (Remeron) 15 mg HS PO Last administered on 09/01/18 20:57; Admin Dose 15 MG; Start 08/29/18 at 21:00 Carvedilol (Coreg) 3.125 mg BID PO Last administered on 09/02/18 08:22; Admin Dose 3.125 MG; Start 08/30/18 at 21:00 Sucralfate (Carafate Susp) 1 gm QID PO Last administered on 09/02/18 08:21; Admin Dose 1 GM; Start 08/30/18 at 21:00; Stop 09/27/18 at 20:59 Metoclopramide HCl (Reglan) 10 mg Q8 PO Last administered on 09/01/18 21:00; Admin Dose 10 MG; Start 08/30/18 at 18:00 Morphine Sulfate (morphine SULFATE (PF)) 1 mg Q4H PRN IV SEVERE PAIN LEVEL 7-10 Last administered on 08/31/18 21:36; Admin Dose 1 MG; Start 08/30/18 at 21:00 Pantoprazole (Protonix Tab) 40 mg DAILY@06 PO Last administered on 09/02/18 06:16; Admin Dose 40 MG; Start 09/01/18 at 06:00; Stop 11/30/18 at 05:59 Ranitidine HCl (Zantac) 150 mg HS PO Last administered on 09/01/18 20:57; Admin Dose 150 MG; Start 08/31/18 at 21:00; Stop 10/30/18 at 20:59 Ferric Sodium Gluconate Complex 125 mg/Sodium Chloride 100 ml @ 100 mls/hr DAILY@1300 IVPB Last administered on 09/01/18 13:00; Admin Dose 100 MLS/HR; Start 08/31/18 at 13:00; Stop 09/02/18 at 13:59 Loperamide HCl (Imodium) 2 mg QID PRN PO DIARRHEA Last administered on 09/01/18 14:58; Admin Dose 2 MG; Start 09/01/18 at 14:00 Diphenoxylate HCl/ Atropine (Lomotil) 2 tab Q6H PRN PO DIARRHEA Last administered on 09/02/18 08:36; Admin Dose 2 TAB; Start 09/02/18 at 06:30 [place] CODY Sep 02, 2018 12:56
[2018-09-02] MEDS ORDERED: CARAS PO (12:57)
[2018-09-02] MEDS ORDERED: PANT40TA4 PO (12:57)
[2018-09-02] MEDS ORDERED: FER325 PO (12:59)
[2018-09-02] MEDS: SOD FERRIC GLUC COMPLX 125 MG in SOD CHLORIDE 0.9% 100 ML IVPB SCH (13:00)
--- NOTE | 2018-09-02 13:09 | DS ---
Date/Time of Note Date/Time of Note DATE: 09/02/18 TIME: 13:01 Discharge Summary Admission/Discharge Info Admit Date/Time Aug 28, 2018 at 19:24 Discharge Date/Time Discharge Diagnosis Severe microcytic anemia, s/p 4 units PRBC transfusion, improved, iron supplem ent, follow up with PCP 2. Severe ulcerative esophagitis and moderate gastritis, protonix/carafate and follow up with GI 3. Hypertension, controlled 4. Coronary artery disease, stable 5. Seizure disorder- on Keppra 6. Chronic pain syndrome, follow up with PCP 7. Marijuana user 8. Depression, continue home meds Patient Condition: Stable Hospital Course This is a 8-year-old male who was brought in from a shelter facility as patient was noted to be altered. It is unclear how long the patient was noted to be altered. When he arrived to the emergency department patient was noted to have a borderline blood pressure and was given a 250 cc bolus of normal saline which did result in him being slightly more conversive. Patient was noted to have a severe anemia with hemoglobin of 2.6. Patient was ordered a blood transfusion and shortly after patient did appear to improve his mentation and become more active. Upon my examination of the patient at the bedside patient reports that he has had 3 days approximately of decreased appetite and when questioned further he does report that he has noticed difficulty swallowing solids. He does report that he has been drinking fluids. He has reported that he has noticed some vomiting of dark blood on occasion but denies any bloody stools. He does have a former history of drinking and occasionally he still smokes marijuana. Patient got PRBC transfusion that improved his H/H to 9.7/28.8 on 08/30/2018. Iron level is 19. EGD/Colonoscopy 08/30/18 revealed Severe ulcerated Esophagitis, Small hiatal hernia, moderate gastritis, Poor bowel prep and Internal hemo rrhoids. No active bleeding after admission. Patient is discharged with protonix bid, carafate and iron supplement. He needs to follow up with PCP and GI outpatient. Home Meds Active Scripts Ferrous Sulfate* (Ferrous Sulfate*) 325 Mg Tabec, 325 MG PO BID for 30 Days, TAB Prov:SIDNEY SHELBY MD 09/02/18 Pantoprazole* (Pantoprazole*) 40 Mg Tablet.dr, 40 MG PO BID for 30 Days Prov:SIDNEY SHELBY MD 09/02/18 Sucralfate* (Carafate*) 1 Gm/10 Ml Susp, 1 GM PO QID for 30 Days Prov:SIDNEY SHELBY MD 09/02/18 Reported Medications Oxycodone Hcl* (IR) (Oxycodone Hcl*) 15 Mg Tablet, 15 MG PO Q6H PRN for PAIN, TAB 08/28/18 Docusate Sodium* (Colace*) 100 Mg Capsule, 100 MG PO QHS, #30 CAP 08/28/18 Carvedilol* (Carvedilol*) 3.125 Mg Tablet, 3.125 MG PO BID, #60 TAB 08/28/18 Clonazepam* (Clonazepam*) 1 Mg Tablet, 1 MG PO NEEDED PRN for ANXIETY, TAB 08/28/18 Gabapentin* (Gabapentin*) 400 Mg Capsule, 400 MG PO Q8H, #90 CAP 08/28/18 Ivabradine HCl (Corlanor) 5 Mg Tablet, 2.5 MG PO BID, #60 TAB 08/28/18 Clopidogrel Bisulfate* (Clopidogrel Bisulfate*) 75 Mg Tablet, 75 MG PO DAILY, #30 TAB 08/28/18 Atorvastatin Calcium* (Atorvastatin Calcium*) 20 Mg Tablet, 20 MG PO QHS, #30 TAB 08/28/18 Levetiracetam* (Levetiracetam*) 1,000 Mg Tablet, 1000 MG PO BID, TAB 08/28/18 Trazodone Hcl* (Trazodone Hcl*) 100 Mg Tablet, 100 MG PO QHS, #30 TAB 08/28/18 Spironolactone* (Aldactone*) 25 Mg Tablet, 12.5 MG PO DAILY, #30 TAB 08/28/18 Mirtazapine* (Mirtazapine*) 15 Mg Tablet, 15 MG PO HS, TAB 08/28/18 Lisinopril* (Lisinopril*) 2.5 Mg Tablet, 2.5 MG PO DAILY, #30 TAB HOLD IF SBP<90 08/28/18 Fluoxetine Hcl* (Fluoxetine Hcl*) 40 Mg Capsule, 80 MG PO DAILY, CAP 08/28/18 Discontinued Reported Medications Guaifenesin/Codeine Phos (Guaifenesin-Codeine Syrup) 118 Ml Syrup, 5 ML PO Q6H PRN for NEEDED 08/28/18 Quetiapine Fumarate* (Quetiapine Fumarate*) 50 Mg Tablet, 50 MG PO Q8H, TAB 08/28/18 Levetiracetam* (Levetiracetam*) 1,000 Mg Tablet, 1000 MG PO BID, TAB 06/27/18 Fluoxetine Hcl* (Fluoxetine Hcl*) 40 Mg Capsule, 40 MG PO DAILY, CAP 06/27/18 Clopidogrel Bisulfate (Clopidogrel) 75 Mg Tablet, 75 MG PO DAILY, TAB 05/25/14 Trazodone Hcl* (Trazodone Hcl*) 50 Mg Tablet, 50 MG PO HS, TAB 05/25/14 Atorvastatin* (Atorvastatin*) 40 Mg Tablet, 40 MG PO HS, TAB 05/25/14 Follow-up Plan PCP and GI in one week Primary Care Provider Not On Staff Doctor SIDNEY SHELBY MD Sep 02, 2018 13:09
[2018-09-13] MEDS ORDERED: QUET50TA22 PO (21:16)
[2018-09-13] MEDS ORDERED: ASPI-817 PO (21:16)
[2018-09-13] MEDS ORDERED: LOPE2CAP PO (21:20)
[2018-09-13] MEDS ORDERED: CODE5LIQ2 PO (21:23)
[2018-09-18] MEDS ORDERED: PANT40TA4 PO (11:46)
[2018-09-18] MEDS ORDERED: SUCR1TAB56 PO ×2 (11:46→11:53)
[2018-09-26] MEDS ORDERED: ASPI-903 PO (11:14)
[2018-09-26] MEDS ORDERED: IVAB5TAB PO (11:15)
[2018-09-26] MEDS ORDERED: GABA300C16 PO (11:16)
[2018-09-26] MEDS ORDERED: LOPE2CAP PO (11:18)
[2018-09-26] MEDS ORDERED: CLON1TAB13 PO (11:18)
== END 2018-09-02 13:07 | disposition home or self-care (01) | DRG 812 ==
LOC: E/R 18:21 → ICU 19:24 → TEL 08-29 12:08
PROVIDERS: ADMIT Family Medicine; ATTEND Internal Medicine
PROC: 30233N1 Transfusion of Nonautologous Red Blood Cells into Peripheral Vein, Percutaneous Approach (ICD-10-PCS; principal; 2018-08-28)
PROC: 0DB68ZX Excision of Stomach, Via Natural or Artificial Opening Endoscopic, Diagnostic (ICD-10-PCS; 2018-08-30)
PROC: 0DJD8ZZ Inspection of Lower Intestinal Tract, Via Natural or Artificial Opening Endoscopic (ICD-10-PCS; 2018-08-30)
DX: D62 Acute posthemorrhagic anemia (principal); K22.10 Ulcer of esophagus without bleeding; E87.2 Acidosis; I42.9 Cardiomyopathy, unspecified; G93.40 Encephalopathy, unspecified; G40.909 Epilepsy, unspecified, not intractable, without status epilepticus; I25.10 Atherosclerotic heart disease of native coronary artery without angina pectoris; G89.29 Other chronic pain; F32.9 Major depressive disorder, single episode, unspecified; I10 Essential (primary) hypertension; K64.8 Other hemorrhoids; K44.9 Diaphragmatic hernia without obstruction or gangrene; K29.70 Gastritis, unspecified, without bleeding; J44.9 Chronic obstructive pulmonary disease, unspecified; R13.10 Dysphagia, unspecified; F12.90 Cannabis use, unspecified, uncomplicated; Z87.891 Personal history of nicotine dependence
CPT/HCPCS: 36415; 36430; 70450; 71045; 74176; 80048; 80053; 80061; 80307; 81003; 82550; 82553; 82728; 83540; 83605; 84436; 84443; 84479; 84484; 85025; 85610; 85730; 86644; 86850; 86900; 86901; 86920; 87040; 87081; 87086; 88305; 88312; 88313; 93005; 96365; 96375; A4310; C1751; C9113; J0610; J0692; J1940; J1953; J2274; J2405; J2916; J3370; J7030; J7040; P9016

== ENCOUNTER 2018-10-05 15:49 | Emergency (ER) | payer MEDICARE ==
[~2018-10-05] VITALS: Wt 50.0 kg
[~2018-10-05 15:49] MED LIST changes: +ASPI-903 PO; +ATOR20TA38 PO; -ATOR40TA68 PO; +CARV3.1260 PO; +CLON1TAB13 PO; +CLOP75TA19 PO; -CLOP75TA27 PO; +GABA300C16 PO; +IVAB5TAB PO; +LISI2.5T59 PO; +LOPE2CAP PO; +MIRT15TA5 PO; +OXYC15TA PO; +PANT40TA4 PO; +QUET50TA22 PO; +SPIR25TA PO; +SUCR1TAB56 PO; -TRAZ-111 PO
[2018-10-05] MEDS ORDERED: SOD CHLORIDE 0.9% 1,000 ML IV STA (16:15)
[2018-10-05] MEDS ORDERED: ASPIRIN 325 MG TAB PO ONE (17:00)
[2018-10-05] MEDS ORDERED: IVAB5TAB PO (17:25)
[2018-10-05] MEDS ORDERED: FER325 PO (17:26)
[2018-10-05] MEDS ORDERED: GABA400C14 PO (17:26)
[2018-10-05] MEDS ORDERED: ASPI-817 PO (17:27)
[2018-10-05] MEDS ORDERED: DOCU-159 PO (17:29)
[2018-10-05] MEDS ORDERED: GUAI473L22 PO (17:31)
--- NOTE | 2018-10-05 17:50 | ERD ---
ER Documentation Chief Complaint Chief Complaint SWALLOWING PROBLEM SINCE YESTERDAY HPI Patient is a 68-year-old male with CHF and seizures who presents saying that he cannot swallow. He was brought in by police as he is currently in [facility]. He says "I have not eaten in 10 days". He said that when he swallows he feels food go into his esophagus and then he vomits. He was seen at [facility] this morning for seizure and was medically cleared but went back to [facility] and said that he could not take pills so they sent him back for medical clearance. He said that he had an endoscopy at another facility 2 weeks ago. He said it s howed "inflammation". He does not know the name of the GI doctor. His primary doctor is Dr. Galo. Upon review of old medical records this is the patient's third visit to the ER since 2013. Review of the emergency department information exchange system shows visits to 2 separate emergency departments. ROS All systems reviewed and are negative except as per history of present illness. Medications Home Meds Active Scripts Sucralfate* (Carafate*) 1 Gm Tab, 1 GM PO Q6 for 30 Days, #120 TAB 1 Refill Prov:VINNIE ZAVALA 09/18/18 Pantoprazole* (Pantoprazole*) 40 Mg Tablet., 40 MG PO BID for 30 Days, #60 2 Refills Alternative: omeprazole 20mg #60tabs, 1 tab po bid, 2 refills. Prov:VINNIE ZAVALA 09/18/18 Reported Medications Guaifenesin-Codeine Phosphate* (Guaifenesin* AC Cough Syrup) 473 Ml Liquid, 5 ML PO Q6 PRN for COUGH, ML 10/05/18 Docusate Sodium* (Docusate Sodium*) 100 Mg Capsule, 100 MG PO QHS PRN for CONSTIPATION, #60 CAP 10/05/18 Aspirin* (Aspirin* EC) 81 Mg Tablet., 81 MG PO DAILY, TAB 10/05/18 Gabapentin* (Gabapentin*) 400 Mg Capsule, 400 MG PO TID, #90 CAP 10/05/18 Ferrous Sulfate* (Ferrous Sulfate*) 325 Mg Tabec, 325 MG PO BID, TAB 10/05/18 Loperamide Hcl* (Imodium*) 2 Mg Capsule, 2 MG PO .WITH EACH DIARRHEA PRN for DIARRHEA, CAP MAX 16 mg/day 09/26/18 Clonazepam* (Clonazepam*) 1 Mg Tablet, 1 MG PO BID PRN for ANXIETY, TAB 09/26/18 Ivabradine HCl (Corlanor) 5 Mg Tablet, 2.5 MG PO BID, #60 TAB 09/26/18 Quetiapine Fumarate* (Quetiapine Fumarate*) 50 Mg Tablet, 50 MG PO Q8H, TAB 09/13/18 Oxycodone Hcl* (IR) (Oxycodone Hcl*) 15 Mg Tablet, 15 MG PO Q8 PRN for PAIN, TAB 08/28/18 Carvedilol* (Carvedilol*) 3.125 Mg Tablet, 3.125 MG PO BID, #60 TAB 08/28/18 Clopidogrel Bisulfate* (Clopidogrel Bisulfate*) 75 Mg Tablet, 75 MG PO DAILY, #30 TAB 08/28/18 Atorvastatin Calcium* (Atorvastatin Calcium*) 20 Mg Tablet, 20 MG PO QHS, #30 TAB 08/28/18 Levetiracetam* (Levetiracetam*) 1,000 Mg Tablet, 1000 MG PO BID, TAB 08/28/18 Spironolactone* (Aldactone*) 25 Mg Tablet, 12.5 MG PO DAILY, #30 TAB 08/28/18 Mirtazapine* (Mirtazapine*) 15 Mg Tablet, 15 MG PO HS, TAB 08/28/18 Lisinopril* (Lisinopril*) 2.5 Mg Tablet, 2.5 MG PO DAILY, #30 TAB HOLD IF SBP<90 08/28/18 Fluoxetine Hcl* (Fluoxetine Hcl*) 40 Mg Capsule, 80 MG PO DAILY, CAP 08/28/18 Discontinued Reported Medications Ivabradine HCl (Corlanor) 5 Mg Tablet, 2.5 MG PO BID, #60 TAB 10/05/18 Gabapentin* (Gabapentin*) 300 Mg Capsule, 300 MG PO TID, #90 CAP 09/26/18 Aspirin* (Aspirin* Chew) 81 Mg Tab.chew, 81 MG PO DAILY, TAB.CHEW 09/26/18 Allergies Allergies: Coded Allergies: No Known Allergy (Unverified , 09/26/18) PMhx/Soc History of Surgery: Yes (ENCEPALOPATHY,CARDIOMYOPATHY,ANXIETY) Anesthesia Reaction: No Hx Neurological Disorder: Yes (ENCEPALOPATHY) Hx Respiratory Disorders: No Hx Cardiac Disorders: Yes (CARDIOMYOPATHY) Hx Psychiatric Problems: Yes (ANXIETY) Hx Miscellaneous Medical Probl: Yes (MICROCYTIC ANEMIA, MALNUTRITION) Hx Alcohol Use: No Hx Substance Use: Yes (MARIJUANA) Hx Tobacco Use: Yes Smoking Status: Never smoker FmHx Family History: No diabetes Physical Exam Vitals Vital Signs Date Temp Pulse Resp B/P (MAP) Pulse Ox O2 O2 Flow FiO2 Time Delivery Rate 10/05/18 Nasal 2 16:27 Cannula 10/05/18 98.0 78 18 138/71 99 16:27 (93) Physical Exam Const: No acute distress Head: Atraumatic Eyes: Normal Conjunctiva ENT: Normal External Ears, Nose and Mouth. Neck: Full range of motion. No meningismus. Resp: Clear to auscultation bilaterally Cardio: Regular rate and rhythm, no murmurs Abd: Soft, non tender, non distended. Normal bowel sounds Skin: No petechiae or rashes Back: No midline or flank tenderness Ext: No cyanosis, or edema Neur: Awake and alert, no slurred speech, no weakness of the upper or lower extremities, cranial nerves II through XII are intact Psych: Normal Mood and Affect Result Diagram: 10/05/18 1652 10/05/18 1652 Results 24 hrs Laboratory Tests Test 10/05/18 16:52 White Blood Count 7.7 10^3/ul Red Blood Count 3.85 10^6/ul Hemoglobin 10.9 g/dl Hematocrit 34.3 % Mean Corpuscular Volume 89.1 fl Mean Corpuscular Hemoglobin 28.3 pg Mean Corpuscular Hemoglobin Concent 31.8 g/dl Red Cell Distribution Width 18.3 % Platelet Count 223 10^3/UL Mean Platelet Volume 10.2 fl Immature Granulocytes % 0.500 % Neutrophils % 68.1 % Lymphocytes % 17.9 % Monocytes % 10.1 % Eosinophils % 2.8 % Basophils % 0.6 % Nucleated Red Blood Cells % 0.0 /100WBC Immature Granulocytes # 0.040 10^3/ul Neutrophils # 5.3 10^3/ul Lymphocytes # 1.4 10^3/ul Monocytes # 0.8 10^3/ul Eosinophils # 0.2 10^3/ul Basophils # 0.1 10^3/ul Nucleated Red Blood Cells # 0.0 10^3/ul Prothrombin Time 13.1 Sec Prothrombin Time Ratio 1.0 INR International Normalized Ratio 0.98 Activated Partial Thromboplast Time 33.6 Sec Sodium Level 138 mmol/L Potassium Level 3.4 mmol/L Chloride Level 105 mmol/L Carbon Dioxide Level 29 mmol/L Anion Gap 4 Blood Urea Nitrogen 20 mg/dl Creatinine 0.84 mg/dl Est Glomerular Filtrat Rate mL/min > 60 mL/min Glucose Level 108 mg/dl Hemoglobin A1c 5.2 % Calcium Level 9.6 mg/dl Troponin I < 0.012 ng/ml Triglycerides Level 93 mg/dl Cholesterol Level 126 mg/dl LDL Cholesterol, Calculated 64 mg/dl HDL Cholesterol 43 mg/dl Cholesterol/HDL Ratio 2.9 RATIO Current Medications Medications Dose Sig/Coryb Start Time Status Last (Trade) Ordered Route PRN Stop Time Admin Dose Reason Admin Sodium 1,000 ml @ Q1H STAT 10/05/18 DC 10/05/18 Chloride 1,000 mls/hr IV 16:15 16:57 10/05/18 17:14 Aspirin 325 mg ONCE ONCE 10/05/18 DC 10/05/18 (Aspirin) PO 17:00 17:22 10/05/18 17:01 Procedures/MDM EKG read by me: Rate/Rhythm: Sinus rate at 79 Intervals: Normal Impression: Sinus rhythm with PVCs CT brain read by radiology. Chest x-ray read by radiology. Patient is a 68-year-old male who presents with trouble swallowing. He passed a swallow evaluation. When faced with oral versus rectal aspirin he was able to swallow aspirin. Laboratory studies were basically normal. CT scan of the brain shows no obvious sign of stroke, brain mass, or hemorrhage. Chest x-ray was basically negative. The patient will be discharged into police custody. I believe there may be an element of him not wanting to be in [facility] and he is doing this to get out of staying in [facility] at this time. He will need outpatient GI consultation and possibly repeat colonoscopy. I do not believe he has stroke or other serious etiology at this time. Patient will be discharged into police custody. He is medically clear. I did recommend to the police that they crush his pills and put in applesauce to help with swallowing. Departure Diagnosis: Primary Impression: Swallowing disorder Condition: Fair Patient Instructions: Stroke: Tips for Swallowing Referrals: Dr. Galo Additional Instructions: Call your primary care doctor TOMORROW for an appointment during the next 1-2 days.See the doctor sooner or return here if your condition worsens before your appointment time. ELVIRA GIORDANO MD Oct 05, 2018 17:50
[2018-10-05] MEDS ORDERED: LEVETIRACETAM 500 MG TAB PO ONE (19:00)
[2018-10-05 19:11] VITALS: BP 148/94; PULSE 87; RESP 16
== END 2018-10-05 19:15 | disposition home or self-care (01) ==
LOC: E/R 15:49
DX: R13.10 Dysphagia, unspecified (principal); R40.2142 Coma scale, eyes open, spontaneous, at arrival to emergency department; R40.2362 Coma scale, best motor response, obeys commands, at arrival to emergency department; R40.2252 Coma scale, best verbal response, oriented, at arrival to emergency department; I50.9 Heart failure, unspecified; R06.02 Shortness of breath; R93.0 Abnormal findings on diagnostic imaging of skull and head, not elsewhere classified; Z79.01 Long term (current) use of anticoagulants; Z87.891 Personal history of nicotine dependence; Z79.82 Long term (current) use of aspirin
CPT/HCPCS: 36415; 70450; 71045; 80048; 80061; 83036; 84484; 85025; 85610; 85730; 86850; 86900; 86901; 99285; J7030; 93005

== ENCOUNTER 2019-02-09 09:14 | Emergency (ER) | payer MEDICARE ==
[~2019-02-09] VITALS: Ht 167.6 cm; Wt 65.0 kg
[~2019-02-09 09:14] MED LIST changes: +ASPI-817 PO; -ASPI-903 PO; +DOCU-159 PO; +FER325 PO; -GABA300C16 PO; +GABA400C14 PO; +GUAI473L22 PO
[2019-02-09 09:30] VITALS: BP 154/92; PULSE 84; RESP 16; Ht 167.6 cm; Wt 65.0 kg
--- NOTE | 2019-02-09 09:40 | ERD ---
ER Documentation Chief Complaint Chief Complaint [facility] REQUESTING REFILL OF PAIN MEDICATION HPI This is a 68-year-old male with a past medical history of degenerative disc disease and chronic low back pain who is presenting for a medication refill. The patient reportedly saw his pain specialist yesterday who refused to refill his pain medication. The patient is ambulatory without issue with a walker at baseline. This is his current ambulatory status as well. He does not endorse any saddle anesthesia. He does not endorse any incontinence or retention of urine or stool. He does not endorse any trauma or injury. He does not endorse any alleviating or exacerbating factors. The patient denies feeling sick recently. The patient denies fever or chills. The patient has had no headache or vision changes. The patient does not endorse neck or back pain. The patient denies lightheadedness or dizziness. The patient has had no chest pain or trouble breathing. The patient denies nausea or vomiting. The patient denies abdominal pain. The patient denies changes to bowel movements or urination. The patient has had no focal deficits. The patient has had no weakness or numbness or tingling to the face or extremities. ROS All systems reviewed and are negative except as per history of present illness. Medications Home Meds Active Scripts Sucralfate* (Carafate*) 1 Gm Tab, 1 GM PO Q6 for 30 Days, #120 TAB 1 Refill Prov:VINNIE ZAVALA 09/18/18 Pantoprazole* (Pantoprazole*) 40 Mg Tablet.dr, 40 MG PO BID for 30 Days, #60 2 Refills Alternative: omeprazole 20mg #60tabs, 1 tab po bid, 2 refills. Prov:VINNIE ZAVALA 09/18/18 Reported Medications Guaifenesin-Codeine Phosphate* (Guaifenesin* AC Cough Syrup) 473 Ml Liquid, 5 ML PO Q6 PRN for COUGH, ML 10/05/18 Docusate Sodium* (Docusate Sodium*) 100 Mg Capsule, 100 MG PO QHS PRN for CONSTIPATION, #60 CAP 10/05/18 Aspirin* (Aspirin* EC) 81 Mg Tablet.dr, 81 MG PO DAILY, TAB 10/05/18 Gabapentin* (Gabapentin*) 400 Mg Capsule, 400 MG PO TID, #90 CAP 10/05/18 Ferrous Sulfate* (Ferrous Sulfate*) 325 Mg Tabec, 325 MG PO BID, TAB 10/05/18 Loperamide Hcl* (Imodium*) 2 Mg Capsule, 2 MG PO .WITH EACH DIARRHEA PRN for DIARRHEA, CAP MAX 16 mg/day 09/26/18 Clonazepam* (Clonazepam*) 1 Mg Tablet, 1 MG PO BID PRN for ANXIETY, TAB 09/26/18 Ivabradine HCl (Corlanor) 5 Mg Tablet, 2.5 MG PO BID, #60 TAB 09/26/18 Quetiapine Fumarate* (Quetiapine Fumarate*) 50 Mg Tablet, 50 MG PO Q8H, TAB 09/13/18 Oxycodone Hcl* (IR) (Oxycodone Hcl*) 15 Mg Tablet, 15 MG PO Q8 PRN for PAIN, TAB 08/28/18 Carvedilol* (Carvedilol*) 3.125 Mg Tablet, 3.125 MG PO BID, #60 TAB 08/28/18 Clopidogrel Bisulfate* (Clopidogrel Bisulfate*) 75 Mg Tablet, 75 MG PO DAILY, #30 TAB 08/28/18 Atorvastatin Calcium* (Atorvastatin Calcium*) 20 Mg Tablet, 20 MG PO QHS, #30 TAB 08/28/18 Levetiracetam* (Levetiracetam*) 1,000 Mg Tablet, 1000 MG PO BID, TAB 08/28/18 Spironolactone* (Aldactone*) 25 Mg Tablet, 12.5 MG PO DAILY, #30 TAB 08/28/18 Mirtazapine* (Mirtazapine*) 15 Mg Tablet, 15 MG PO HS, TAB 08/28/18 Lisinopril* (Lisinopril*) 2.5 Mg Tablet, 2.5 MG PO DAILY, #30 TAB HOLD IF SBP<90 08/28/18 Fluoxetine Hcl* (Fluoxetine Hcl*) 40 Mg Capsule, 80 MG PO DAILY, CAP 08/28/18 Allergies Allergies: Coded Allergies: No Known Allergy (Unverified , 09/26/18) PMhx/Soc History of Surgery: No Anesthesia Reaction: No Hx Neurological Disorder: Yes (ENCEPALOPATHY) Hx Respiratory Disorders: No Hx Cardiac Disorders: Yes (CARDIOMYOPATHY) Hx Psychiatric Problems: Yes (ANXIETY) Hx Miscellaneous Medical Probl: Yes (MICROCYTIC ANEMIA, MALNUTRITION) Hx Alcohol Use: No Hx Substance Use: Yes (MARIJUANA) Hx Tobacco Use: Yes FmHx Family History: No diabetes Physical Exam Vitals Vital Signs Date Temp Pulse Resp B/P (MAP) Pulse Ox O2 O2 Flow FiO2 Time Delivery Rate 02/09/19 98.6 84 16 154/92 99 09:30 (112) Physical Exam Const: No acute distress Head: Atraumatic Eyes: Normal Conjunctiva ENT: Normal External Ears, Nose and Mouth. Neck: Full range of motion. No meningismus. Resp: Clear to auscultation bilaterally Cardio: Regular rate and rhythm, no murmurs Abd: Soft, non tender, non distended. Normal bowel sounds Skin: No petechiae or rashes Back: Mild midline lumbar tenderness. No step-offs or deformities. No flank tenderness Ext: No cyanosis, or edema Neur: Awake and alert Psych: Normal Mood and Affect Results 24 hrs Current Medications Medications Dose Sig/Corby Start Time Status Last (Trade) Ordered Route PRN Stop Time Admin Dose Reason Admin Oxycodone 5 mg ONCE ONCE 02/09/19 HCl PO 10:00 (Roxicodone) 02/09/19 10:01 Procedures/MDM MDM The patient presents for chronic low back pain requesting a refill prescription of opiate medications. The patient reportedly saw his pain specialist yesterday who reportedly refused to refill his medication. I did offer him 1 dose in the emergency department, but I explained to him that it would be inappropriate to obtain a refill of his opiate medication from the emergency department, and I would not be able to do this today. I have very low suspicion for cauda equina. I do not suspect transverse myelitis. I do not suspect epidural abscess. The patient has chronic long-standing unchanged low back pain, and I do feel that the patient requires longitudinal management in an outpatient setting. TREATMENT/DISPOSITION The patient was treated with 1 dose of oxycodone. DISCHARGE Upon reevaluation of the patient, symptoms have improved. No emergent diagnoses were identified. At this time, I feel that the patient stable for discharge. T he patient was instructed to follow-up with a primary care physician in 1-3 days. The patient will be given strict precautions with which to return to the emergency department. Prescriptions: None The patient's blood pressure was elevated at greater than 120/80 while in the emergency department. The patient was otherwise stable with no evidence of hypertensive urgency or emergency. The patient does not require admission for blood pressure control. I have discussed with the patient the risks of hyperten jatin. I have instructed the patient to return to the ER for any new or worsening symptoms including chest pain, shortness of breath, headache, blurred vision, confusion, nausea, vomiting or LOC. I have advised the patient to follow up with the primary care physician for outpatient monitoring and treatment for hypertension in 1-3 days. Disclaimer: Inadvertent spelling and grammatical errors are likely due to EHR/dictation software use and do not reflect on the overall quality of patient care. Note that the electronic time recorded on this note does not necessarily reflect the actual time of the patient encounter. Departure Diagnosis: Primary Impression: Encounter for medication refill Additional Impressions: Degenerative disc disease Spinal region: lumbar Qualified Codes: M51.36 - Other intervertebral disc degeneration, lumbar region Chronic back pain Back pain location: low back pain Back pain laterality: midline Sciatica presence: without sciatica Qualified Codes: M54.5 - Low back pain; G89.29 - Other chronic pain Condition: Stable Patient Instructions: Taking Medicine Safely, Back Pain (Acute Or Chronic) Additional Instructions: Thank you for for coming to [facility] for your care today. Please ask your nurse or provider if you have questions about your care today and do not leave until all your questions have been answered. Please use any medications given as directed and follow-up with your doctor (or the doctor you were referred to) in the next 1-3 days. If you do not have a primary care doctor you may follow up at the [facility] or [facility] (listed below). You may also use motrin and tylenol as needed for fever and/or pain unless instructed otherwise by your provider or nurse. Indications for more urgent follow-up have been discussed, but you may return to the Emergency Department at ANY time for any worrisome or worsening symptoms. If you have abdominal pain, please know that no test or exam you received is perfect and you should follow up within 8 hours for continued pain. If you had any imaging studies today, such as an X-Ray or CT Scan, these studies will be reviewed later by a radiologist. You will be called if there are important findings that were not identified today, so make sure the contact information you provided at registration is correct. If you received any narcotic pain control medicine today, such as Vicodin, Morphine or Dilaudid, your coordination and judgment may be affected for a number of hours. Please do not drive or operate heavy machinery, and you may want someone to assist you at home. If you were given a prescription for narcotic medication, be aware that it is very addictive- use sparingly and only if necessary. PLEASE SEEK FURTHER EVALUATION AND MANAGEMENT AT YOUR DOCTORS OFFICE WITHIN THE NEXT 1-3 DAYS. IT IS YOUR RESPONSIBILITY TO MAKE AN APPOINTMENT FOR FOLOW-UP CARE. IF YOU HAVE A PRIMARY DOCTOR, PLEASE CALL THEIR OFFICE TO SCHEDULE AN APPOINTMENT FOR FOLLOW UP. IF YOU DO NOT HAVE A PRIMARY DOCTOR YOU CAN CALL OUR PHYSICIAN REFERRAL HOTLINE AT IF YOU CAN NOT AFFORD TO SEE A PHYSICIAN YOU CAN CHOSE FROM THE FOLLOWING [facility] CLINICS: [facility] [address] [facility] [facility] [address] [facility] [address] [facility] [address] [facility] [address] [facility] [address] [facility] [facility] [address] [facility] [address] [facility] [address] [facility]. [facility]. [address] HERIBERTO RODRIGUEZ MD Feb 09, 2019 09:40
[2019-02-09] MEDS ORDERED: oxyCODONE 5 MG TAB PO ONE (10:00)
== END 2019-02-09 10:15 | disposition home or self-care (01) ==
LOC: E/R 09:14
DX: M51.36 Other intervertebral disc degeneration, lumbar region (principal); Z79.01 Long term (current) use of anticoagulants; Z79.82 Long term (current) use of aspirin; Z87.891 Personal history of nicotine dependence
CPT/HCPCS: 99283

== ENCOUNTER 2019-02-26 11:04 | Emergency (ER) | payer SELFPAY ==
[~2019-02-26] VITALS: Wt 45.8 kg
[2019-02-26 11:07] VITALS: BP 129/58; PULSE 58; RESP 18
== END 2019-02-26 12:40 | disposition left against medical advice (07) ==
LOC: E/R 11:04
DX: Z53.21 Procedure and treatment not carried out due to patient leaving prior to being seen by health care provider (principal)

== ENCOUNTER 2019-04-24 09:53 | Inpatient (IN) | payer MEDICARE ==
[~2019-04-24] VITALS: Ht 167.6 cm; Wt 45.9 kg
[~2019-04-24 09:53] MED LIST changes: +ALPR1TAB7 PO; +ARIP5TAB14 PO; +ASPI-903 PO; +AZIT500T9 PO; +CLOP75TA27 PO; +DIV250 PO; +IPRA3AMP29 HHN; +OLAN5TAB5 PO; +PANT20TA2 PO; +PRED20TA PO
[2019-04-24] MEDS ORDERED: IPRATROPIUM (NEB) 0.5 MG/2.5 ML AMP INH STA (09:57)
[2019-04-24] MEDS ORDERED: ALBUTEROL 0.5% (NEB) 2.5 MG/0.5 ML AMP INH STA (09:57)
[2019-04-24] MEDS ORDERED: METHYLPREDNISOLONE 125 MG INJ IV STA (09:57)
[2019-04-24] MEDS ORDERED: SODIUM CHLORIDE 0.9% 1L BAG IV* STA (11:04)
[2019-04-24] MEDS ORDERED: LEVOFLOXACIN 750MG/D5W (PMX) 150 ML IVPB ONE (11:30)
[2019-04-24] MEDS ORDERED: ONDANSETRON 4 MG INJ IV PRN (11:30)
[2019-04-24] MEDS ORDERED: ACETAMINOPHEN 325 MG TAB PO PRN (11:30)
[2019-04-24 13:10] VITALS: BP 90/54; PULSE 93; RESP 17
[2019-04-24 13:20] VITALS: Ht 167.6 cm; Wt 45.9 kg
[2019-04-24] MEDS ORDERED: ALBUTEROL/IPRATROPIUM (NEB) 3 ML AMP HHN PRN (14:00)
[2019-04-24] MEDS ORDERED: NACL 0.9% 3 ML SYG IV SCH (14:00)
[2019-04-24] MEDS ORDERED: IBUPROFEN 600 MG TAB PO PRN (14:00)
[2019-04-24] MEDS ORDERED: OXYCODONE/ACETAMINOPHEN (10/325) TAB PO PRN (14:00)
[2019-04-24] MEDS ORDERED: CEFTRIAXONE 1 GM/50 ML (PMX) 50 ML IVPB SCH (14:00)
[2019-04-24] MEDS: AZITHROMYCIN 500 MG TAB PO SCH (15:07)
[2019-04-24 15:37] VITALS: BP 99/59; PULSE 104; RESP 18
[2019-04-24] MEDS: SUCRALFATE 1 GM TAB PO SCH ×2 (18:11→23:42)
[2019-04-24 20:00] VITALS: BP 97/66; PULSE 98; RESP 18
[2019-04-24] MEDS: DIVALPROEX (EC) 250 MG TAB PO SCH (20:14)
[2019-04-24] MEDS ORDERED: ATORVASTATIN 20 MG TAB PO SCH (21:00)
[2019-04-24] MEDS: ALPRAZOLAM 1 MG TAB PO PRN (23:46)
[2019-04-25] VITALS: BP 94/55; PULSE 83; RESP 18
[2019-04-25 04:00] VITALS: BP 90/54; PULSE 78; RESP 18
[2019-04-25] MEDS: SUCRALFATE 1 GM TAB PO SCH ×2 (05:54→12:08)
[2019-04-25] MEDS ORDERED: PANTOPRAZOLE (EC) 40 MG TAB PO SCH (06:00)
[2019-04-25 07:18] VITALS: BP 98/59; PULSE 75; RESP 18
[2019-04-25] MEDS: AZITHROMYCIN 500 MG TAB PO SCH (08:28)
[2019-04-25] MEDS: DIVALPROEX (EC) 250 MG TAB PO SCH ×2 (08:28→12:09)
[2019-04-25] MEDS ORDERED: predniSONE 20 MG TAB PO SCH (09:00)
[2019-04-25] MEDS ORDERED: ASPIRIN 81 MG TAB PO SCH (09:00)
[2019-04-25] MEDS ORDERED: CLOPIDOGREL 75 MG TAB PO SCH (09:00)
[2019-04-25] MEDS ORDERED: SPIRONOLACTONE 25 MG TAB PO SCH (09:00)
[2019-04-25] MEDS ORDERED: FLUOXETINE 20 MG CAP PO SCH (09:00)
[2019-04-25 11:08] VITALS: BP 122/60; PULSE 90; RESP 16
[2019-04-25] MEDS: ALPRAZOLAM 1 MG TAB PO PRN (15:32)
[2019-04-25 15:34] VITALS: BP 133/72; PULSE 96; RESP 18
== END 2019-04-25 16:30 | DRG 190 ==
LOC: E/R 09:53 → SUATTDRO 11:24 → 6WM 11:27
PROVIDERS: ADMIT Internal Medicine; ATTEND Internal Medicine
PROC: 5A09357 Assistance with Respiratory Ventilation, Less than 24 Consecutive Hours, Continuous Positive Airway Pressure (ICD-10-PCS; principal; 2019-04-24)
DX: J44.1 Chronic obstructive pulmonary disease with (acute) exacerbation (principal); J18.9 Pneumonia, unspecified organism; E87.2 Acidosis; E44.0 Moderate protein-calorie malnutrition; Z68.1 Body mass index [BMI] 19.9 or less, adult; I42.9 Cardiomyopathy, unspecified; I11.0 Hypertensive heart disease with heart failure; I50.9 Heart failure, unspecified; E78.5 Hyperlipidemia, unspecified; G40.909 Epilepsy, unspecified, not intractable, without status epilepticus; F41.9 Anxiety disorder, unspecified; D64.9 Anemia, unspecified; M54.5 Low back pain; K20.9 Esophagitis, unspecified; Z79.82 Long term (current) use of aspirin; Z95.5 Presence of coronary angioplasty implant and graft; Z87.891 Personal history of nicotine dependence
CPT/HCPCS: 36415; 36600; 71045; 71250; 80048; 80053; 82803; 83036; 83605; 83735; 83880; 84100; 84443; 84484; 85025; 85610; 87081; 93005; 94644; 94660; 96374; 96375; J0696; J1956; J2930; J7030; J7512